=== PATIENT | female | born 1940 ===

== ENCOUNTER 2018-08-30 15:16 | Inpatient (IN) | payer MEDICARE ==
[2018-08-30 15:16] VITALS: BMI 23.6
[2018-08-30] MEDS ORDERED: Iohexol 240 (50 ml) PO ONE (16:09)
[2018-08-30] MEDS ORDERED: Sodium Chloride 0.9% 1,000 ML IV STA (16:10)
--- NOTE | 2018-08-30 16:32 | ED PDOC ---
HPI: Abdomen Time Seen by Provider: 08/30/18 15:57 Chief Complaint (Nursing): GI Problem Chief Complaint (Provider): GI Problem History Per: Patient, Family (Niece) History/Exam Limitations: no limitations Onset/Duration Of Symptoms: Other (3 weeks) Associated Symptoms: Chills, Diarrhea. denies: Fever, Nausea, Vomiting, Urinary Symptoms Additional Complaint(s): 78 years old female with history of hypertension and high cholesterol presents to ER with her niece for evaluation of abdominal pain and diarrhea. Patient reports diarrhea was initially intermittent since April, but has been frequent and watery in the last 3 weeks. Niece reports she felt patient is very pale and tired today and decided to bring her to the ED. Patient states she has occasional chills and reports feeling weak with 10 to 15 pounds of unintentional weight loss. She states she was seen by a atm servicer and was advised with endoscopy colonoscopy. Patient is trying to see if she can take capsule endoscopy colonoscopy instead of having the procedure. She denies any recent travel, sick contact, recent antibiotics uptake, nausea, vomiting, bloody stools, fever, urinary symptoms or change in appetite. PMD: Hallie Cook Past Medical History Reviewed: Historical Data, Nursing Documentation, Vital Signs Vital Signs: Last Vital Signs Temp 97.7 F 08/30/18 15:39 Pulse 84 08/30/18 15:39 Resp 18 08/30/18 15:39 BP 98/62 L 08/30/18 15:39 Pulse Ox 98 08/30/18 15:39 - Medical History PMH: Gall Bladder Disease, HTN, Hypercholesterolemia, Hypothyroidism, Chronic Kidney Disease (BLADDER LIFT) - Surgical History Surgical History: Cholecystectomy - Family History Family History: States: Unknown Family Hx - Social History Current smoker - smoking cessation education provided: No Alcohol: None Drugs: Denies - Immunization History Hx Tetanus Toxoid Vaccination: No Hx Influenza Vaccination: Yes Hx Pneumococcal Vaccination: Yes - Home Medications Home Medications: Ambulatory Orders Medication Instructions Recorded RX: Levothyroxine [Synthroid] 50 mcg PO DAILY 08/30/18 RX: Pregabalin [Lyrica] 75 mg PO BID 08/30/18 RX: Cholestyramine [Questran] 4 gm PO DAILY #14 packet 09/03/18 RX: Cyanocobalamin [Vitamin B12 1,000 mcg IM DAILY vial 09/03/18 1000 mcg/ml Inj] RX: Metoprolol Tartrate [Lopressor] 6.25 mg PO Q12 #60 tab 09/03/18 RX: Potassium Chloride [K-Dur 20 20 meq PO BID #4 tab 09/03/18 mEq ER Tab] - Allergies Allergies/Adverse Reactions: Allergies Allergy/AdvReac Type Severity Reaction Status Date / Time No Known Allergies Allergy Verified 02/17/16 20:55 Review of Systems ROS Statement: Except As Marked, All Systems Reviewed And Found Negative Constitutional: Positive for: Chills. Negative for: Fever Gastrointestinal: Positive for: Abdominal Pain, Diarrhea (watery). Negative for: Nausea, Vomiting Genitourinary Female: Negative for: Other (Bloody stools) Physical Exam - Reviewed Nursing Documentation Reviewed: Yes Vital Signs Reviewed: Yes - Physical Exam Appears: Positive for: Non-toxic (Tired appearing), No Acute Distress Head Exam: Positive for: ATRAUMATIC, NORMOCEPHALIC Skin: Positive for: Warm, Dry Eye Exam: Positive for: EOMI, PERRL ENT: Positive for: Pharynx Is (clear), Other (tacky mucous membranes) Neck: Positive for: Painless ROM, Supple Cardiovascular/Chest: Positive for: Regular Rate, Rhythm. Negative for: Murmur Respiratory: Positive for: Normal Breath Sounds. Negative for: Respiratory Di stress Gastrointestinal/Abdominal: Positive for: Bowel Sounds (normal, active), Soft, Tenderness (on palpation to LLQ). Negative for: Mass, Guarding, Rebound Back: Positive for: Normal Inspection. Negative for: Decreased ROM Extremity: Positive for: Normal ROM. Negative for: Deformity Lymphatic: Negative for: Adenopathy Neurologic/Psych: Positive for: Alert, Oriented (x3) - Laboratory Results Result Diagrams: 09/02/18 05:19 09/03/18 04:20 - ECG O2 Sat by Pulse Oximetry: 98 (RA) Pulse Ox Interpretation: Normal Medical Decision Making Medical Decision Making: Time: 1609 Initial Impression: Diarrhea and abdominal pain. Differential includes but not limited to diverticulitis, colitis, partial bowel obstruction, infectious diarrhea and dehydration. Initial Plan: --CT Abd/Pelvis W IV Contrast --CMP --Lactic acid --Lipase --Phosphorous --Magnesium --TSH --CBC --NaCl 1,000 ml IV --Omnipaque 50 ml PO --Blood culture --Urine culture --Stool culture --Urinalysis Time: 2046 Impression: 1. Moderate bowel wall thickening involving the small bowel, most consistent with enteritis. 2. Fluid distention of the colon, consistent with mild infectious of inflammatory colitis. No significant bowel thickening is appreciated. There is no evidence of bowel obstruction. 3. No evidence of hydronephrolithiais. 4. Slightly complex lesion in the lateral left kidney. Ultrasound would be helpful for further evaluation. 5. Periumbilical hernia containing only omental fat. 6. Grade 1 anterior spondylolisthesis of L5 upon S1 caused by bilateral pars defect. DW Dr [facility]. Pt to be hospitalized for hypokalemia, abdominal pain, dehydration. Scribe Attestation: Documented by Ora Dunabr, acting as a scribe for Ana Alexandra MD. Provider Scribe Attestation: All medical record entries made by the Scribe were at my direction and personally dictated by me. I have reviewed the chart and agree that the record accurately reflects my personal performance of the history, physical exam, medical decision making, and the department course for this patient. I have also personally directed, reviewed, and agree with the discharge instructions and disposition. Disposition - Clinical Impression Clinical Impression: Diarrhea, Hypokalemia, Gastroenteritis Counseled Patient/Family Regarding: Studies Performed, Diagnosis - Disposition Condition: FAIR
[2018-08-30] MEDS ORDERED: Iohexol 240 (50 ml) ONE (17:14)
[2018-08-30 17:32] LABS: BASO % 0.5 % (0.0-2.0); EOS # 0.6 K/uL (0.0-0.7); EOS % 10.1 % (0.0-4.0); HEMOGLOBIN 12.5 g/dL (12.0-16.0); LYMPH # 1.1 K/uL (1.0-4.3); MEAN CELL VOLUME 100.8 fl (81.0-99.0); MEAN CORPUSCULAR HEMOGLOBIN 33.7 pg (27.0-31.0); MEAN CORPUSCULAR HGB CONC 33.4 g/dL (33.0-37.0); MEAN PLATELET VOLUME 9.2 fl (7.2-11.7); MONO % 14.9 % (0.0-10.0); NEUT # 3.7 K/uL (1.8-7.0); NEUT % 57.5 % (50.0-75.0); RBC 3.73 Mil/uL (3.80-5.20); RED CELL DISTRIBUTION WIDTH 13.1 % (11.5-14.5); WHITE BLOOD COUNT 6.4 K/uL (4.8-10.8)
[2018-08-30 17:44] LABS: SQUAMOUS EPITHIAL < 1 /hpf (0-5); URINE BACTERIA RARE (<OCC); URINE BILIRUBIN SMALL (NEGATIVE); URINE BLOOD NEGATIVE (NEGATIVE); URINE CLARITY SLIGHTY-CLOUDY (Clear); URINE COLOR YELLOW (YELLOW); URINE GLUCOSE (UA) NEG (Normal); URINE HYALINE CAST 0-2 /hpf (0-2); URINE LEUKOCYTE ESTERASE MOD Leu/uL (Negative); URINE PROTEIN 30 mg/dL (NEGATIVE); URINE UROBILINOGEN 0.2-1.0 mg/dL (0.2-1.0)
[2018-08-30 19:30] LABS: ALBUMIN 4.2 g/dL (3.5-5.0); CALCIUM 9.1 mg/dL (8.4-10.2)
[2018-08-30] MEDS ORDERED: Potassium CL 10mEq/100ml 100 ML IVPB ONE (19:34)
[2018-08-30] MEDS ORDERED: Potassium Chloride 20 mEq ER Tab PO STA (19:34)
[2018-08-30] MEDS ORDERED: Potassium Chloride 20 mEq ER Tab PO ONE ×2 (20:29→20:35)
[2018-08-30] MEDS ORDERED: Potassium CL 10 MEQ/50 ML 0 ML ONE (20:30)
[2018-08-30] MEDS ORDERED: metroNIDAZOLE 500mg/100ml NS 100 ML IV STA (21:16)
[2018-08-30] MEDS ORDERED: Ciprofloxacin 400mg/200ml D5W 400 MG/200 ML BAG IV STA (21:16)
[2018-08-30] MEDS ORDERED: metroNIDAZOLE 500mg/100ml NS 100 ML IVPB ONE (23:23)
--- NOTE | 2018-08-31 06:56 | CARD ---
APPROVED REPORT Date of service: 08/31/2018 EKG Measurement Heart [id number] <Conclusion> Normal sinus rhythm with sinus arrhythmia Inferior infarct, age undetermined Abnormal ECG
[2018-08-31] MEDS: Levothyroxine 50 MCG TAB PO SCH (08:22)
[2018-08-31] MEDS: Dextrose 5%/0.45% NS 1,000 ML IV SCH ×2 (08:22→21:45)
[2018-08-31] MEDS: Enoxaparin 30 mg Syringe SC SCH (08:23)
--- NOTE | 2018-08-31 08:59 | CP.PCM.HP ---
History of Present Illness - History of Present Illness History of Present Illness: 78 YR OLD FEMALE WHO PRESENTED WITH ABDOMINAL PAINS AND WATERY DIARRHEA X SEVERAL MONTHS.SYMPTOMS HAVE WORSENED OVER THE PAST SEVERAL DAYS.DENIES BLOODY STOOLS BUT HAD NAUSEA AND VOMITING.WAS REFERRED TO A SURVEY SUPERINTENDENT BUT HAS BEEN RELUCTANT TO HAVE EGD/COLONOSCOPY HX OF THYROID DZ AND HTN Present on Admission - Present on Admission Any Indicators Present on Admission: No Past Patient History - Past Medical History & Family History Past Medical History?: Yes - Past Social History Smoking Status: Never Smoked - CARDIAC Hx Cardiac Disorders: Yes - PULMONARY Hx Respiratory Disorders: No - NEUROLOGICAL Hx Neurological Disorder: No - HEENT Hx HEENT Problems: No - RENAL Hx Chronic Kidney Disease: Yes (BLADDER LIFT) - ENDOCRINE/METABOLIC Hx Endocrine Disorders: Yes - HEMATOLOGICAL/ONCOLOGICAL Hx Blood Disorders: No - INTEGUMENTARY Hx Dermatological Problems: No - MUSCULOSKELETAL/RHEUMATOLOGICAL Hx Musculoskeletal Disorders: Yes Hx Falls: Yes - GASTROINTESTINAL Hx Gall Bladder Disease: Yes - GENITOURINARY/GYNECOLOGICAL Hx Genitourinary Disorders: No - PSYCHIATRIC Hx Psychophysiologic Disorder: No Hx Substance Use: No - SURGICAL HISTORY Hx Cholecystectomy: Yes - ANESTHESIA Hx Anesthesia: Yes Hx Anesthesia Reactions: No Hx Malignant Hyperthermia: No Meds Allergies/Adverse Reactions: Allergies Allergy/AdvReac Type Severity Reaction Status Date / Time No Known Allergies Allergy Verified 02/17/16 20:55 Physical Exam - Constitutional Appears: No Acute Distress - Head Exam Head Exam: ATRAUMATIC, NORMAL INSPECTION, NORMOCEPHALIC - Eye Exam Eye Exam: EOMI, Normal appearance, PERRL Pupil Exam: NORMAL ACCOMODATION, PERRL - ENT Exam ENT Exam: Mucous Membranes Moist, Normal Exam - Neck Exam Neck exam: Positive for: Normal Inspection - Respiratory Exam Respiratory Exam: Clear to Auscultation Bilateral, NORMAL BREATHING PATTERN - Cardiovascular Exam Cardiovascular Exam: REGULAR RHYTHM - GI/Abdominal Exam GI & Abdominal Exam: Normal Bowel Sounds, Soft, Tenderness - Rectal Exam Rectal Exam: NORMAL INSPECTION - Extremities Exam Extremities exam: Positive for: normal inspection - Back Exam Back exam: NORMAL INSPECTION - Neurological Exam Neurological exam: Alert, CN II-XII Intact, Normal Gait, Oriented x3, Reflexes Normal - Psychiatric Exam Psychiatric exam: Normal Affect, Normal Mood - Skin Skin Exam: Dry, Intact, Normal Color, Warm Results - Vital Signs Recent Vital Signs: Last Vital Signs Temp 98.2 F 08/31/18 08:26 Pulse 71 08/31/18 08:26 Resp 20 08/31/18 08:26 BP 101/58 L 08/31/18 08:26 Pulse Ox 98 08/31/18 08:26 - Labs Result Diagrams: 08/30/18 16:13 08/30/18 19:07 Labs: Laboratory Results - last 24 hr 08/30/18 08/30/18 08/30/18 16:13 16:58 17:25 WBC 6.4 RBC 3.73 L Hgb 12.5 Hct 37.6 MCV 100.8 H MCH 33.7 H MCHC 33.4 RDW 13.1 Plt Count 174 MPV 9.2 Neut % (Auto) 57.5 Lymph % (Auto) 17.0 L [place] % (Auto) 14.9 H Eos % (Auto) 10.1 H Baso % (Auto) 0.5 Neut # (Auto) 3.7 Lymph # (Auto) 1.1 [place] # (Auto) 1.0 H Eos # (Auto) 0.6 Baso # (Auto) 0.0 Sodium Potassium Chloride Carbon Dioxide Anion Gap BUN Creatinine Est GFR ( Amer) Est GFR (Non-Af Amer) Random Glucose Lactic Acid 1.4 Calcium Phosphorus Magnesium Total Bilirubin AST ALT Alkaline Phosphatase Total Protein Albumin Globulin Albumin/Globulin Ratio Lipase TSH 3rd Generation Urine Color Yellow Urine Clarity Slighty-cloudy Urine pH 5.0 Ur Specific [place] 1.021 Urine Protein 30 Urine Glucose (UA) Neg Urine Ketones Negative Urine Blood Negative Urine Nitrate Negative Urine Bilirubin Small Urine Urobilinogen 0.2-1.0 Ur Leukocyte Esterase Mod Urine RBC (Auto) 3 Urine Microscopic WBC 48 H Ur Squamous Epith Cells < 1 Urine Bacteria Rare Hyaline Casts 0-2 08/30/18 19:07 WBC RBC Hgb Hct MCV MCH MCHC RDW Plt Count MPV Neut % (Auto) Lymph % (Auto) [place] % (Auto) Eos % (Auto) Baso % (Auto) Neut # (Auto) Lymph # (Auto) [place] # (Auto) Eos # (Auto) Baso # (Auto) Sodium 140 Potassium 2.6 L Chloride 100 Carbon Dioxide 20 L Anion Gap 23 H BUN 52 H Creatinine 2.4 H Est GFR ( Amer) 24 Est GFR (Non-Af Amer) 20 Random Glucose 103 Lactic Acid Calcium 9.1 Phosphorus 4.0 Magnesium 2.1 Total Bilirubin 0.5 AST 34 ALT 18 Alkaline Phosphatase 71 Total Protein 8.3 H Albumin 4.2 Globulin 4.1 H Albumin/Globulin Ratio 1.0 Lipase 372 H TSH 3rd Generation 1.29 Urine Color Urine Clarity Urine pH Ur Specific [place] Urine Protein Urine Glucose (UA) Urine Ketones Urine Blood Urine Nitrate Urine Bilirubin Urine Urobilinogen Ur Leukocyte Esterase Urine RBC (Auto) Urine Microscopic WBC Ur Squamous Epith Cells Urine Bacteria Hyaline Casts Assessment & Plan - Assessment and Plan (Free Text) Assessment: ACUTE COLITIS DEHYDRATION HYPOKALEMIA DUE TO GI LOSS Plan: IV HYDRATION AND ANTIBIOTICS GASTROENTEROLOGY EVAL - Date & Time Date: 08/31/18 Time: 09:00
[2018-08-31 09:13] LABS: HEMOGLOBIN 11.8 g/dL (12.0-16.0); MEAN CELL VOLUME 98.7 fl (81.0-99.0); MEAN CORPUSCULAR HEMOGLOBIN 34.3 pg (27.0-31.0); MEAN CORPUSCULAR HGB CONC 34.7 g/dL (33.0-37.0); RBC 3.45 Mil/uL (3.80-5.20); RED CELL DISTRIBUTION WIDTH 13.1 % (11.5-14.5); WHITE BLOOD COUNT 5.7 K/uL (4.8-10.8)
[2018-08-31 09:43] LABS: CALCIUM 8.6 mg/dL (8.4-10.2)
[2018-08-31] MEDS: Potassium CL 10mEq/100ml 100 ML IVPB SCH ×3 (11:14→14:38)
[2018-08-31] MEDS: metroNIDAZOLE 500mg/100ml NS 100 ML IVPB SCH ×2 (11:15→16:30)
[2018-08-31] MEDS: Ciprofloxacin 400mg/200ml D5W 400 MG/200 ML BAG IVPB SCH ×2 (11:15→21:41)
--- NOTE | 2018-08-31 11:26 | CT ---
Date of service: 08/30/2018 PROCEDURE: CT Abdomen and Pelvis with contrast HISTORY: Abdominal pain. COMPARISON: None. TECHNIQUE: Intravenous contrast dose: Oral contrast only. Radiation dose: Total exam DLP = 347.85 mGy-cm. This CT exam was performed using one or more of the following dose reduction techniques: Automated exposure control, adjustment of the mA and/or kV according to patient size, and/or use of iterative reconstruction technique. FINDINGS: LOWER THORAX: Unremarkable. LIVER: Unremarkable. No gross lesion or ductal dilatation. GALLBLADDER AND BILE DUCTS: Status post cholecystectomy. No abnormality is seen in the gallbladder fossa. PANCREAS: Unremarkable. No gross lesion or ductal dilatation. SPLEEN: Unremarkable. ADRENALS: Unremarkable. No mass. KIDNEYS AND URETERS: Unremarkable. No hydronephrosis. No solid mass. VASCULATURE: Unremarkable. No aortic aneurysm. BOWEL: Fluid-filled colon and small bowel findings likely reflect enterocolitis. APPENDIX: No abnormalities to suggest acute appendicitis. No right lower quadrant inflammatory processes identified. PERITONEUM: Unremarkable. No free fluid. No free air. LYMPH NODES: Lymph nodes scattered throughout the rest Betzy and retroperitoneum consistent with mesenteric adenitis. BLADDER: Unremarkable. REPRODUCTIVE: Unremarkable. BONES: No acute fracture. Grade 1 anterolisthesis L5-S1 with associated pars defects. Loss of height L2 and T9 compatible with osteopenic compression deformities. OTHER FINDINGS: Periumbilical fat containing hernia. IMPRESSION: Enterocolitis, mild without evidence of obstructing process
--- NOTE | 2018-08-31 14:50 | CP.PCM.CON ---
History of Present Illness - History of Present Illness History of Present Illness: GI consult note for Dr. Fouzia Cooper, PGY-2 Pt S & E at bedside at 1415. Pt somnolent at bedside, history as per great niece at bedside. [place] speaking. 78F w/PMH sig for Asthma, hx TIAs, peripheral neuropathy, hypothyroidism, HTN consulted for colitis. Fermin corado moved in with patient in April, noticed that patient was having recurrent diarrhea over the past few months. Pt was evaluated by Dr. Purcell with recs for EGD/colonoscopy, which patient refused. Pt requested capsule endoscopy, was referred to Dr. Vo- initial visit scheduled for 09/20. In the last 2 weeks patient has been having increased episodes of diarrhea, generalized weakness, unsteady gait, mild diffuse intermittent abdominal pain. Occasionally has SOB. Eats at other peoples houses Denies N & V, CP, changes in urinary habits, hematochezia, melena, F & C, recent travel, other complaints. Upon admission- pt found to have severe hypokalemia, K 2.7 from 2.6. 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 Purcell and Dr. Vo (future appointment) Review of Systems - Review of Systems All systems: reviewed and no additional remarkable complaints except - Constitutional Constitutional: absent: Chills, Fever, Headache - EENT Ears: absent: Dizziness Nose/Mouth/Throat: absent: Sore Throat - Cardiovascular Cardiovascular: absent: Chest Pain - Respiratory Respiratory: absent: Cough - Gastrointestinal Gastrointestinal: Abdominal Pain (mild), Change in Bowel Habits, Diarrhea, Loose Stools. absent: Constipation, Hematemesis, Hematochezia, Melena, Nausea, Vomiting - Genitourinary Genitourinary: absent: Change in Urinary Stream, Dysuria, Hematuria, Pyuria - Musculoskeletal Musculoskeletal: absent: Back Pain - Integumentary Integumentary: absent: Rash - Neurological Neurological: Abnormal Gait - Psychiatric Psychiatric: absent: Change in Appetite Past Patient History - Past Medical History & Family History Past Medical History?: Yes - Past Social History Smoking Status: Never Smoked - CARDIAC Hx Cardiac Disorders: Yes - PULMONARY Hx Respiratory Disorders: No - NEUROLOGICAL Hx Neurological Disorder: No - HEENT Hx HEENT Problems: No - RENAL Hx Chronic Kidney Disease: Yes (BLADDER LIFT) - ENDOCRINE/METABOLIC Hx Endocrine Disorders: Yes - HEMATOLOGICAL/ONCOLOGICAL Hx Blood Disorders: No - INTEGUMENTARY Hx Dermatological Problems: No - MUSCULOSKELETAL/RHEUMATOLOGICAL Hx Musculoskeletal Disorders: Yes Hx Falls: Yes - GASTROINTESTINAL Hx Gall Bladder Disease: Yes - GENITOURINARY/GYNECOLOGICAL Hx Genitourinary Disorders: No - PSYCHIATRIC Hx Psychophysiologic Disorder: No Hx Substance Use: No - SURGICAL HISTORY Hx Cholecystectomy: Yes - ANESTHESIA Hx Anesthesia: Yes Hx Anesthesia Reactions: No Hx Malignant Hyperthermia: No Meds Allergies/Adverse Reactions: Allergies Allergy/AdvReac Type Severity Reaction Status Date / Time No Known Allergies Allergy Verified 02/17/16 20:55 - Medications Medications: Current Medications Cholestyramine Resin (Questran) 4 gm PO DAILY [facility] Enoxaparin Sodium (Lovenox) 30 mg SC DAILY [facility]; Protocol Last Admin: 08/31/18 08:23 Dose: 30 mg Ciprofloxacin (Cipro 400mg/200ml Dsw) 400 mg in 200 mls @ 200 mls/hr IVPB Q12 [facility]; Protocol Last Admin: 08/31/18 11:15 Dose: 200 mls/hr Metronidazole (Flagyl 500mg/100ml Ns) 100 mls @ 100 mls/hr IVPB Q8 [facility]; Protocol Last Admin: 08/31/18 11:15 Dose: 100 mls/hr Dextrose/Sodium Chloride (Dextrose 5%/0.45% Ns 1000 Ml) 1,000 mls @ 80 mls/hr IV .[id number] [facility] Stop: 09/01/18 06:46 Last Admin: 08/31/18 08:22 Dose: 80 mls/hr Levothyroxine Sodium (Synthroid) 50 mcg PO DAILY@0630 [facility] Last Admin: 08/31/18 08:22 Dose: 50 mcg Metoprolol Tartrate (Lopressor) 6.25 mg PO Q12 [facility] Last Admin: 08/31/18 12:45 Dose: 6.25 mg Pantoprazole Sodium (Protonix Inj) 40 mg IVP DAILY [facility] Last Admin: 08/31/18 11:16 Dose: 40 mg Physical Exam - Constitutional Appears: Non-toxic, No Acute Distress - Head Exam Head Exam: ATRAUMATIC, NORMAL INSPECTION, NORMOCEPHALIC - Eye Exam Eye Exam: EOMI, Normal appearance - ENT Exam ENT Exam: Mucous Membranes Moist, Normal Exam - Neck Exam Neck exam: Positive for: Full Rom, Normal Inspection - Respiratory Exam Respiratory Exam: Clear to Auscultation Bilateral, NORMAL BREATHING PATTERN. absent: Prolonged Expiratory Phase, Rales, Rhonchi, Wheezes, Respiratory Distress - Cardiovascular Exam Cardiovascular Exam: +S1, +S2 - GI/Abdominal Exam GI & Abdominal Exam: Hernia (umbilical), Normal Bowel Sounds, Soft. absent: Dis tended, Firm, Guarding, Mass, Rebound, Rigid, Tenderness - Rectal Exam Rectal Exam: Deferred - Extremities Exam Extremities exam: Positive for: normal inspection - Neurological Exam Additional comments: somnolent, arousable to verbal and tactile stimuli - Psychiatric Exam Psychiatric exam: Normal Affect, Normal Mood - Skin Skin Exam: Dry, Intact, Normal Color, Warm Results - Vital Signs Recent Vital Signs: Last Vital Signs Temp 98.5 F 08/31/18 12:38 Pulse 71 08/31/18 12:45 Resp 20 08/31/18 12:38 BP 120/70 08/31/18 12:45 Pulse Ox 96 08/31/18 12:38 - Labs Result Diagrams: 08/31/18 09:05 08/31/18 09:05 Labs: Laboratory Results - last 24 hr 08/30/18 08/30/18 08/30/18 16:13 16:58 17:25 WBC 6.4 RBC 3.73 L Hgb 12.5 Hct 37.6 MCV 100.8 H MCH 33.7 H MCHC 33.4 RDW 13.1 Plt Count 174 MPV 9.2 Neut % (Auto) 57.5 Lymph % (Auto) 17.0 L [place] % (Auto) 14.9 H Eos % (Auto) 10.1 H Baso % (Auto) 0.5 Neut # (Auto) 3.7 Lymph # (Auto) 1.1 [place] # (Auto) 1.0 H Eos # (Auto) 0.6 Baso # (Auto) 0.0 Sodium Potassium Chloride Carbon Dioxide Anion Gap BUN Creatinine Est GFR ( Amer) Est GFR (Non-Af Amer) Random Glucose Lactic Acid 1.4 Calcium Phosphorus Magnesium Total Bilirubin AST ALT Alkaline Phosphatase Total Protein Albumin Globulin Albumin/Globulin Ratio Lipase TSH 3rd Generation Urine Color Yellow Urine Clarity Slighty-cloudy Urine pH 5.0 Ur Specific [place] 1.021 Urine Protein 30 Urine Glucose (UA) Neg Urine Ketones Negative Urine Blood Negative Urine Nitrate Negative Urine Bilirubin Small Urine Urobilinogen 0.2-1.0 Ur Leukocyte Esterase Mod Urine RBC (Auto) 3 Urine Microscopic WBC 48 H Ur Squamous Epith Cells < 1 Urine Bacteria Rare Hyaline Casts 0-2 08/30/18 08/31/18 08/31/18 19:07 09:05 09:05 WBC 5.7 RBC 3.45 L Hgb 11.8 L Hct 34.1 MCV 98.7 D MCH 34.3 H MCHC 34.7 RDW 13.1 Plt Count 164 MPV Neut % (Auto) Lymph % (Auto) [place] % (Auto) Eos % (Auto) Baso % (Auto) Neut # (Auto) Lymph # (Auto) [place] # (Auto) Eos # (Auto) Baso # (Auto) Sodium 140 139 Potassium 2.6 L 2.7 L Chloride 100 103 Carbon Dioxide 20 L 26 Anion Gap 23 H 13 BUN 52 H 32 H Creatinine 2.4 H 1.5 H Est GFR ( Amer) 24 41 Est GFR (Non-Af Amer) 20 34 Random Glucose 103 92 Lactic Acid Calcium 9.1 8.6 Phosphorus 4.0 Magnesium 2.1 Total Bilirubin 0.5 AST 34 ALT 18 Alkaline Phosphatase 71 Total Protein 8.3 H Albumin 4.2 Globulin 4.1 H Albumin/Globulin Ratio 1.0 Lipase 372 H TSH 3rd Generation 1.29 Urine Color Urine Clarity Urine pH Ur Specific [place] Urine Protein Urine Glucose (UA) Urine Ketones Urine Blood Urine Nitrate Urine Bilirubin Urine Urobilinogen Ur Leukocyte Esterase Urine RBC (Auto) Urine Microscopic WBC Ur Squamous Epith Cells Urine Bacteria Hyaline Casts Assessment & Plan - Assessment and Plan (Free Text) Assessment: 78F w/colitis, severe hypokalemia Plan: Recommend EGD/colonoscopy- pt currrently refusing intervention Cholestyramine Stool studies B12/Folate Iron Fecal fat Fecal Calprotectin Fecal electrolytes FOB Work up for autoimmune vs. infectious etiology Further mgmt as per primary DW Dr. Valorie Cooper, PGY-2 - Date & Time Date: 08/31/18 Time: 14:49
[2018-08-31] MEDS: Cholestyramine 4 gm/Pkt UD PO SCH (17:50)
[2018-09-01] MEDS: metroNIDAZOLE 500mg/100ml NS 100 ML IVPB SCH ×3 (01:05→16:00)
[2018-09-01] MEDS: Levothyroxine 50 MCG TAB PO SCH (06:04)
[2018-09-01 06:05] LABS: CALCIUM 8.3 mg/dL (8.4-10.2)
[2018-09-01] MEDS: Cholestyramine 4 gm/Pkt UD PO SCH (08:17)
[2018-09-01] MEDS: Ciprofloxacin 400mg/200ml D5W 400 MG/200 ML BAG IVPB SCH ×2 (08:17→21:33)
[2018-09-01] MEDS: Enoxaparin 30 mg Syringe SC SCH (08:17)
--- NOTE | 2018-09-01 10:13 | CP.PCM.PN ---
Subjective - Date & Time of Evaluation Date of Evaluation: 09/01/18 Time of Evaluation: 10:13 - Subjective Subjective: SCARED TO EAT BECAUSE OF DIARRHEA DIARRHEA IS LESS DENIES ABDOMINAL PAIN/NAUSEA/VOMITING Objective - Vital Signs/Intake and Output Vital Signs (last 24 hours): Temp Pulse Resp BP Pulse Ox 98.0 F 62 18 122/65 97 09/01/18 09:26 09/01/18 09:26 09/01/18 09:26 09/01/18 09:26 09/01/18 09:26 - Medications Medications: Current Medications Cholestyramine Resin (Questran) 4 gm PO DAILY [facility] Last Admin: 09/01/18 08:17 Dose: 4 gm Cyanocobalamin (Vitamin B12 1000 Mcg/Ml Inj) 1,000 mcg IM DAILY [facility] Enoxaparin Sodium (Lovenox) 30 mg SC DAILY [facility]; Protocol Last Admin: 09/01/18 08:17 Dose: 30 mg Ciprofloxacin (Cipro 400mg/200ml Dsw) 400 mg in 200 mls @ 200 mls/hr IVPB Q12 [facility]; Protocol Last Admin: 09/01/18 08:17 Dose: 200 mls/hr Metronidazole (Flagyl 500mg/100ml Ns) 100 mls @ 100 mls/hr IVPB Q8 [facility]; Protocol Last Admin: 09/01/18 08:16 Dose: 100 mls/hr Potassium Chloride (Potassium Cl 10meq/50ml Sterile Water) 50 mls @ 50 mls/hr IVPB Q1 [facility] Stop: 09/01/18 12:59 Levothyroxine Sodium (Synthroid) 50 mcg PO DAILY@0630 [facility] Last Admin: 09/01/18 06:04 Dose: 50 mcg Metoprolol Tartrate (Lopressor) 6.25 mg PO Q12 [facility] Last Admin: 09/01/18 08:45 Dose: 6.25 mg Pantoprazole Sodium (Protonix Inj) 40 mg IVP DAILY [facility] Last Admin: 09/01/18 08:17 Dose: 40 mg Potassium Chloride (K-Dur 20 Meq Er Tab) 20 meq PO BID [facility] - Labs Labs: 08/31/18 09:05 09/01/18 05:16 - Constitutional Appears: Chronically Ill - Head Exam Head Exam: ATRAUMATIC, NORMAL INSPECTION, NORMOCEPHALIC - Eye Exam Eye Exam: EOMI, Normal appearance, PERRL Pupil Exam: NORMAL ACCOMODATION, PERRL - ENT Exam ENT Exam: Mucous Membranes Moist, Normal Exam - Neck Exam Neck Exam: Full ROM, Normal Inspection. absent: Lymphadenopathy - Respiratory Exam Respiratory Exam: Clear to Ausculation Bilateral, NORMAL BREATHING PATTERN - Cardiovascular Exam Cardiovascular Exam: REGULAR RHYTHM, +S1, +S2. absent: Murmur - GI/Abdominal Exam GI & Abdominal Exam: Soft, Normal Bowel Sounds. absent: Tenderness - Rectal Exam Rectal Exam: NORMAL INSPECTION - Extremities Exam Extremities Exam: Full ROM, Normal Capillary Refill, Normal Inspection. absent: Joint Swelling, Pedal Edema - Back Exam Back Exam: NORMAL INSPECTION - Neurological Exam Neurological Exam: Alert, Awake, CN II-XII Intact, Normal Gait, Oriented x3 - Psychiatric Exam Psychiatric exam: Normal Affect, Normal Mood - Skin Skin Exam: Dry, Intact, Normal Color, Warm Assessment and Plan - Assessment and Plan (Free Text) Assessment: ACUTE COLITIS--R/O INFECTIOUS/INFLAMATORY SEVERE HYPOKALEMIA Plan: PT AGREES TO HAVE EGD AND COLONOSCOPY WILL REPLACE K+
[2018-09-01] MEDS: Potassium Chloride 20 mEq ER Tab PO SCH ×2 (11:45→16:02)
[2018-09-01] MEDS: Potassium CL 10 MEQ/50 ML 50 ML IVPB SCH ×4 (11:48→15:18)
--- NOTE | 2018-09-01 16:01 | CP.PCM.PN ---
Subjective - Date & Time of Evaluation Date of Evaluation: 09/01/18 Time of Evaluation: 09:00 - Subjective Subjective: Patient with fewer bowel movements over night. Over the course of today has had loose liquid yellow stools. Objective - Vital Signs/Intake and Output Vital Signs (last 24 hours): Temp Pulse Resp BP Pulse Ox 98.0 F 66 20 125/75 98 09/01/18 13:00 09/01/18 13:00 09/01/18 13:00 09/01/18 13:00 09/01/18 13:00 - Medications Medications: Current Medications Cholestyramine Resin (Questran) 4 gm PO DAILY [facility] Last Admin: 09/01/18 08:17 Dose: 4 gm Cyanocobalamin (Vitamin B12 1000 Mcg/Ml Inj) 1,000 mcg IM DAILY [facility] Last Admin: 09/01/18 11:45 Dose: 1,000 mcg Enoxaparin Sodium (Lovenox) 30 mg SC DAILY [facility]; Protocol Last Admin: 09/01/18 08:17 Dose: 30 mg Ciprofloxacin (Cipro 400mg/200ml Dsw) 400 mg in 200 mls @ 200 mls/hr IVPB Q12 [facility]; Protocol Last Admin: 09/01/18 08:17 Dose: 200 mls/hr Metronidazole (Flagyl 500mg/100ml Ns) 100 mls @ 100 mls/hr IVPB Q8 [facility]; Protocol Last Admin: 09/01/18 08:16 Dose: 100 mls/hr Levothyroxine Sodium (Synthroid) 50 mcg PO DAILY@0630 [facility] Last Admin: 09/01/18 06:04 Dose: 50 mcg Metoprolol Tartrate (Lopressor) 6.25 mg PO Q12 [facility] Last Admin: 09/01/18 08:45 Dose: 6.25 mg Pantoprazole Sodium (Protonix Inj) 40 mg IVP DAILY [facility] Last Admin: 09/01/18 08:17 Dose: 40 mg Potassium Chloride (K-Dur 20 Meq Er Tab) 20 meq PO BID [facility] Last Admin: 09/01/18 11:45 Dose: 20 meq - Labs Labs: 08/31/18 09:05 09/01/18 05:16 - Head Exam Head Exam: ATRAUMATIC - Eye Exam Eye Exam: Normal appearance - Neck Exam Neck Exam: Full ROM - Respiratory Exam Respiratory Exam: Clear to Ausculation Bilateral - Cardiovascular Exam Cardiovascular Exam: REGULAR RHYTHM - GI/Abdominal Exam GI & Abdominal Exam: Soft, Tenderness, Normal Bowel Sounds Additional comments: mild generalized tenderness Assessment and Plan (1) Diarrhea Assessment & Plan: Has persistent diarrhea. Somewhat better last night but nursing reporting liquid yellow stools today. CT showed moderate mucosal thickening of small bowel and fluid filled colon loops. Potassium still low. B12 also low. B12 and K+ being supplemented. If patient and family agree will do upper and lower endoscopy tomorrow. Differential includes IBD, infection, microscopic colitis, and celiac disease. Status: Acute
--- NOTE | 2018-09-01 16:38 | CP.PCM.PN ---
Subjective - Date & Time of Evaluation Date of Evaluation: 09/01/18 Time of Evaluation: 16:29 - Subjective Subjective: Discussed upper and lower endoscopy with patient's niece and she states that the patient and her family do not want any endoscopic procedures at this time. Objective - Vital Signs/Intake and Output Vital Signs (last 24 hours): Temp Pulse Resp BP Pulse Ox 98.5 F 73 20 115/73 98 09/01/18 16:21 09/01/18 16:21 09/01/18 16:21 09/01/18 16:21 09/01/18 16:21 - Medications Medications: Current Medications Cholestyramine Resin (Questran) 4 gm PO DAILY [facility] Last Admin: 09/01/18 08:17 Dose: 4 gm Cyanocobalamin (Vitamin B12 1000 Mcg/Ml Inj) 1,000 mcg IM DAILY [facility] Last Admin: 09/01/18 11:45 Dose: 1,000 mcg Enoxaparin Sodium (Lovenox) 30 mg SC DAILY [facility]; Protocol Last Admin: 09/01/18 08:17 Dose: 30 mg Ciprofloxacin (Cipro 400mg/200ml Dsw) 400 mg in 200 mls @ 200 mls/hr IVPB Q12 [facility]; Protocol Last Admin: 09/01/18 08:17 Dose: 200 mls/hr Metronidazole (Flagyl 500mg/100ml Ns) 100 mls @ 100 mls/hr IVPB Q8 [facility]; Protocol Last Admin: 09/01/18 16:00 Dose: 100 mls/hr Levothyroxine Sodium (Synthroid) 50 mcg PO DAILY@0630 [facility] Last Admin: 09/01/18 06:04 Dose: 50 mcg Metoprolol Tartrate (Lopressor) 6.25 mg PO Q12 [facility] Last Admin: 09/01/18 08:45 Dose: 6.25 mg Pantoprazole Sodium (Protonix Inj) 40 mg IVP DAILY [facility] Last Admin: 09/01/18 08:17 Dose: 40 mg Potassium Chloride (K-Dur 20 Meq Er Tab) 20 meq PO BID [facility] Last Admin: 09/01/18 16:02 Dose: 20 meq - Labs Labs: 08/31/18 09:05 09/01/18 05:16 Assessment and Plan (1) Diarrhea Assessment & Plan: Continue current treatment. Upper and lower endoscopy cancelled as per the pa tient and family wishes. Status: Acute
[2018-09-01 17:44] LABS: FOLATE 14.3 ng/mL
[2018-09-02] MEDS: metroNIDAZOLE 500mg/100ml NS 100 ML IVPB SCH ×3 (00:52→17:54)
[2018-09-02 05:34] LABS: BASO % 0.8 % (0.0-2.0); EOS # 0.8 K/uL (0.0-0.7); EOS % 12.3 % (0.0-4.0); HEMOGLOBIN 11.2 g/dL (12.0-16.0); LYMPH # 1.3 K/uL (1.0-4.3); LYMPH % 21.7 % (20.0-40.0); MEAN CELL VOLUME 99.8 fl (81.0-99.0); MEAN CORPUSCULAR HEMOGLOBIN 34.3 pg (27.0-31.0); MEAN CORPUSCULAR HGB CONC 34.4 g/dL (33.0-37.0); MEAN PLATELET VOLUME 8.7 fl (7.2-11.7); MONO # 0.8 K/uL (0.0-0.8); MONO % 12.8 % (0.0-10.0); NEUT # 3.2 K/uL (1.8-7.0); NEUT % 52.4 % (50.0-75.0); NRBC % 0.1 % (0.0-0.0); RBC 3.27 Mil/uL (3.80-5.20); RED CELL DISTRIBUTION WIDTH 12.9 % (11.5-14.5); WHITE BLOOD COUNT 6.2 K/uL (4.8-10.8)
[2018-09-02 05:51] LABS: CALCIUM 8.5 mg/dL (8.4-10.2)
[2018-09-02] MEDS: Levothyroxine 50 MCG TAB PO SCH (06:01)
--- NOTE | 2018-09-02 08:57 | CP.PCM.PN ---
Subjective - Date & Time of Evaluation Date of Evaluation: 09/02/18 Time of Evaluation: 08:57 - Subjective Subjective: FEELS BETTER REFUSING COLONOSCOPY DIARRHEA LESS Objective - Vital Signs/Intake and Output Vital Signs (last 24 hours): Temp Pulse Resp BP Pulse Ox 98.3 F 73 18 117/72 97 09/02/18 07:56 09/02/18 07:56 09/02/18 07:56 09/02/18 07:56 09/02/18 07:56 - Medications Medications: Current Medications Cholestyramine Resin (Questran) 4 gm PO DAILY [facility] Last Admin: 09/01/18 08:17 Dose: 4 gm Cyanocobalamin (Vitamin B12 1000 Mcg/Ml Inj) 1,000 mcg IM DAILY [facility] Last Admin: 09/01/18 11:45 Dose: 1,000 mcg Enoxaparin Sodium (Lovenox) 30 mg SC DAILY [facility]; Protocol Last Admin: 09/01/18 08:17 Dose: 30 mg Ciprofloxacin (Cipro 400mg/200ml Dsw) 400 mg in 200 mls @ 200 mls/hr IVPB Q12 [facility]; Protocol Last Admin: 09/01/18 21:33 Dose: 200 mls/hr Metronidazole (Flagyl 500mg/100ml Ns) 100 mls @ 100 mls/hr IVPB Q8 [facility]; Protocol Last Admin: 09/02/18 00:52 Dose: 100 mls/hr Levothyroxine Sodium (Synthroid) 50 mcg PO DAILY@0630 [facility] Last Admin: 09/02/18 06:01 Dose: 50 mcg Metoprolol Tartrate (Lopressor) 6.25 mg PO Q12 [facility] Last Admin: 09/01/18 22:07 Dose: 6.25 mg Pantoprazole Sodium (Protonix Inj) 40 mg IVP DAILY [facility] Last Admin: 09/01/18 08:17 Dose: 40 mg Potassium Chloride (K-Dur 20 Meq Er Tab) 20 meq PO BID [facility] Last Admin: 09/01/18 16:02 Dose: 20 meq - Labs Labs: 09/02/18 05:19 09/02/18 05:19 - Constitutional Appears: No Acute Distress - Head Exam Head Exam: ATRAUMATIC, NORMAL INSPECTION, NORMOCEPHALIC - Eye Exam Eye Exam: EOMI, Normal appearance, PERRL Pupil Exam: NORMAL ACCOMODATION, PERRL - ENT Exam ENT Exam: Mucous Membranes Moist, Normal Exam - Neck Exam Neck Exam: Full ROM, Normal Inspection. absent: Lymphadenopathy - Respiratory Exam Respiratory Exam: Clear to Ausculation Bilateral, NORMAL BREATHING PATTERN - Cardiovascular Exam Cardiovascular Exam: REGULAR RHYTHM, +S1, +S2. absent: Murmur - GI/Abdominal Exam GI & Abdominal Exam: Soft, Normal Bowel Sounds. absent: Tenderness - Rectal Exam Rectal Exam: NORMAL INSPECTION - Extremities Exam Extremities Exam: Full ROM, Normal Capillary Refill, Normal Inspection. absent: Joint Swelling, Pedal Edema - Back Exam Back Exam: NORMAL INSPECTION - Neurological Exam Neurological Exam: Alert, Awake, CN II-XII Intact, Normal Gait, Oriented x3 - Psychiatric Exam Psychiatric exam: Normal Affect, Normal Mood - Skin Skin Exam: Dry, Intact, Normal Color, Warm Assessment and Plan - Assessment and Plan (Free Text) Assessment: COLITIS HYPOKALEMIA DEHYDRATION Plan: CONTINUE ANTIBIOTIC RX K+SUPPLEMENTS WILL D/C IN AM IF PT CONTINUES TO REFUSE COLONOSCOPY[SHE WILL FOLLOW UP WITH HER PMD FOR FURTHER WORKUP]
[2018-09-02] MEDS: Potassium Chloride 20 mEq ER Tab PO SCH ×2 (10:11→17:53)
[2018-09-02] MEDS: Ciprofloxacin 400mg/200ml D5W 400 MG/200 ML BAG IVPB SCH ×2 (10:14→20:57)
[2018-09-02] MEDS: Cholestyramine 4 gm/Pkt UD PO SCH (10:14)
[2018-09-02] MEDS: Enoxaparin 30 mg Syringe SC SCH (10:26)
--- NOTE | 2018-09-02 12:54 | CP.PCM.PN ---
Subjective - Date & Time of Evaluation Date of Evaluation: 09/02/18 Time of Evaluation: 12:53 - Subjective Subjective: GI progress note for Dr. Fouzia Cooper, PGY-2 Pt S & E at bedside at 1220 Pt resting comfortably in bed. Sister at bedsided. Reports that pt will be discharged tomorrow with plans to go to [facility] for scoping. Pt reports 2 normal caliber, non bloody BMs today. Denies F & C, abdominal pain, other complaints. Objective - Vital Signs/Intake and Output Vital Signs (last 24 hours): Temp Pulse Resp BP Pulse Ox 98.1 F 61 18 105/67 97 09/02/18 12:10 09/02/18 12:10 09/02/18 12:10 09/02/18 12:10 09/02/18 12:10 - Medications Medications: Current Medications Cholestyramine Resin (Questran) 4 gm PO DAILY [facility] Last Admin: 09/02/18 10:14 Dose: 4 gm Cyanocobalamin (Vitamin B12 1000 Mcg/Ml Inj) 1,000 mcg IM DAILY [facility] Last Admin: 09/02/18 10:14 Dose: 1,000 mcg Enoxaparin Sodium (Lovenox) 30 mg SC DAILY [facility]; Protocol Last Admin: 09/02/18 10:26 Dose: 30 mg Ciprofloxacin (Cipro 400mg/200ml Dsw) 400 mg in 200 mls @ 200 mls/hr IVPB Q12 [facility]; Protocol Last Admin: 09/02/18 10:14 Dose: 200 mls/hr Metronidazole (Flagyl 500mg/100ml Ns) 100 mls @ 100 mls/hr IVPB Q8 [facility]; Protoco l Last Admin: 09/02/18 10:10 Dose: 100 mls/hr Levothyroxine Sodium (Synthroid) 50 mcg PO DAILY@0630 [facility] Last Admin: 09/02/18 06:01 Dose: 50 mcg Metoprolol Tartrate (Lopressor) 6.25 mg PO Q12 [facility] Last Admin: 09/02/18 10:12 Dose: 6.25 mg Pantoprazole Sodium (Protonix Inj) 40 mg IVP DAILY [facility] Last Admin: 09/02/18 10:13 Dose: 40 mg Potassium Chloride (K-Dur 20 Meq Er Tab) 20 meq PO BID [facility] Last Admin: 09/02/18 10:11 Dose: 20 meq - Labs Labs: 09/02/18 05:19 09/02/18 05:19 - Constitutional Appears: Non-toxic, No Acute Distress - Head Exam Head Exam: ATRAUMATIC, NORMAL INSPECTION, NORMOCEPHALIC - Eye Exam Eye Exam: EOMI, Normal appearance - ENT Exam ENT Exam: Mucous Membranes Moist, Normal Exam - Neck Exam Neck Exam: Full ROM, Normal Inspection - Respiratory Exam Respiratory Exam: Clear to Ausculation Bilateral, NORMAL BREATHING PATTERN. absent: Prolonged Expiratory Phase, Rhonchi, Wheezes, Respiratory Distress - Cardiovascular Exam Cardiovascular Exam: REGULAR RHYTHM, +S1, +S2 - GI/Abdominal Exam GI & Abdominal Exam: Soft, Normal Bowel Sounds. absent: Distended, Firm, Guarding, Rigid, Tenderness - Extremities Exam Extremities Exam: Normal Inspection - Neurological Exam Neurological Exam: Alert, Awake, CN II-XII Intact, Oriented x3 - Psychiatric Exam Psychiatric exam: Normal Affect, Normal Mood - Skin Skin Exam: Dry, Intact, Normal Color, Warm Assessment and Plan - Assessment and Plan (Free Text) Assessment: 78F w/recurrent diarrhea Plan: Stool neg for salmonella, shigella, camphylobacter FOB neg Stool leukocytes positive Hypokalemia now 3.2 from 2.7 JEANMARIE resolving CRP high- 43.3 B12 low- 191 Immunological work up pending Plan to go to [place] for EGD/colonoscopy upon d/c tomorrow CONNOR Cooper, PGY-2
--- NOTE | 2018-09-02 19:42 | CP.PCM.PN ---
Subjective - Date & Time of Evaluation Date of Evaluation: 09/02/18 Time of Evaluation: 19:31 - Subjective Subjective: Feels stronger. Not currently having diarrhea. Objective - Vital Signs/Intake and Output Vital Signs (last 24 hours): Temp Pulse Resp BP Pulse Ox 98 F 81 20 146/69 97 09/02/18 19:28 09/02/18 19:28 09/02/18 19:28 09/02/18 19:28 09/02/18 19:28 Intake and Output: 09/02/18 09/03/18 18:59 06:59 Intake Total 1140 Balance 1140 - Medications Medications: Current Medications Cholestyramine Resin (Questran) 4 gm PO DAILY [facility] Last Admin: 09/02/18 10:14 Dose: 4 gm Cyanocobalamin (Vitamin B12 1000 Mcg/Ml Inj) 1,000 mcg IM DAILY [facility] Last Admin: 09/02/18 10:14 Dose: 1,000 mcg Enoxaparin Sodium (Lovenox) 30 mg SC DAILY [facility]; Protocol Last Admin: 09/02/18 10:26 Dose: 30 mg Ciprofloxacin (Cipro 400mg/200ml Dsw) 400 mg in 200 mls @ 200 mls/hr IVPB Q12 [facility]; Protocol Last Admin: 09/02/18 10:14 Dose: 200 mls/hr Metronidazole (Flagyl 500mg/100ml Ns) 100 mls @ 100 mls/hr IVPB Q8 [facility]; Protocol Last Admin: 09/02/18 17:54 Dose: 100 mls/hr Levothyroxine Sodium (Synthroid) 50 mcg PO DAILY@0630 [facility] Last Admin: 09/02/18 06:01 Dose: 50 mcg Metoprolol Tartrate (Lopressor) 6.25 mg PO Q12 [facility] Last Admin: 09/02/18 10:12 Dose: 6.25 mg Pantoprazole Sodium (Protonix Inj) 40 mg IVP DAILY [facility] Last Admin: 09/02/18 10:13 Dose: 40 mg Potassium Chloride (K-Dur 20 Meq Er Tab) 20 meq PO BID [facility] Last Admin: 09/02/18 17:53 Dose: 20 meq - Labs Labs: 09/02/18 05:19 09/02/18 05:19 - Head Exam Head Exam: ATRAUMATIC - Eye Exam Eye Exam: Normal appearance - ENT Exam ENT Exam: Normal Exam - Respiratory Exam Respiratory Exam: Clear to Ausculation Bilateral - Cardiovascular Exam Cardiovascular Exam: REGULAR RHYTHM, +S1, +S2 - Rectal Exam Rectal Exam: NORMAL INSPECTION Assessment and Plan (1) Diarrhea Assessment & Plan: Clinically better. Labs show fecal leukocytes and CRP are elevated, however WBC and temp are normal. Electrolytes are much better. Continue cholestyramine and low fat, gluten/lactose free diet. May stop metronidazole tomorrow. Patient desires to have colonoscopy as outpatient elsewhere. Status: Acute
[2018-09-03] MEDS: metroNIDAZOLE 500mg/100ml NS 100 ML IVPB SCH ×2 (00:14→09:44)
[2018-09-03] MEDS: Levothyroxine 50 MCG TAB PO SCH (06:14)
--- NOTE | 2018-09-03 08:51 | CP.PCM.PCO ---
Assessment & Plan - Assessment and Plan (Free Text) Assessment: pt. doing well, denies fever, chills, n/v/d cleared for discharge to home today by d/c Home on Gluten Free, Lactose Free diet cont. Questran f/u with GI for outpatient colonoscopy./endoscopy
[2018-09-03] MEDS: Cholestyramine 4 gm/Pkt UD PO SCH (09:25)
[2018-09-03] MEDS: Potassium Chloride 20 mEq ER Tab PO SCH (09:25)
[2018-09-03] MEDS: Enoxaparin 30 mg Syringe SC SCH (09:43)
[2018-09-03] MEDS: Ciprofloxacin 400mg/200ml D5W 400 MG/200 ML BAG IVPB SCH (09:44)
--- NOTE | 2018-09-03 12:55 | CP.PCM.DIS ---
Provider - Provider Date of Admission: 08/30/18 21:37 Attending physician: Jeovany Swartz MD Time Spent in preparation of Discharge (in minutes): 30 Diagnosis - Discharge Diagnosis (1) Diarrhea Status: Acute (2) Hypertension Status: Acute (3) Hypothyroidism Status: Acute Hospital Course - Lab Results Lab Results: Micro Results 08/30/18 17:45 Blood Blood Culture - Preliminary NO GROWTH AFTER 3 DAYS 08/31/18 14:43 Stool Ova and Parasite Concentrate Exam - Final 08/30/18 17:07 Blood Blood Culture - Preliminary NO GROWTH AFTER 3 DAYS 08/30/18 17:19 Stool Stool Culture - Final NO SALMONELLA, SHIGELLA OR CAMPYLOBACTER ISOLATED. 08/30/18 16:58 Urine,Clean Catch Urine Culture - Final Beta Hemolytic Strep Group B Most Recent Lab Values WBC 6.2 K/uL (4.8-10.8) 09/02/18 05:19 RBC 3.27 Mil/uL (3.80-5.20) L 09/02/18 05:19 Hgb 11.2 g/dL (12.0-16.0) L 09/02/18 05:19 Hct 32.6 % (34.0-47.0) L 09/02/18 05:19 MCV 99.8 fl (81.0-99.0) H 09/02/18 05:19 MCH 34.3 pg (27.0-31.0) H 09/02/18 05:19 MCHC 34.4 g/dL (33.0-37.0) 09/02/18 05:19 RDW 12.9 % (11.5-14.5) 09/02/18 05:19 Plt Count 161 K/uL (130-400) 09/02/18 05:19 MPV 8.7 fl (7.2-11.7) 09/02/18 05:19 Neut % (Auto) 52.4 % (50.0-75.0) 09/02/18 05:19 Lymph % (Auto) 21.7 % (20.0-40.0) 09/02/18 05:19 [place] % (Auto) 12.8 % (0.0-10.0) H 09/02/18 05:19 Eos % (Auto) 12.3 % (0.0-4.0) H 09/02/18 05:19 Baso % (Auto) 0.8 % (0.0-2.0) 09/02/18 05:19 Neut # (Auto) 3.2 K/uL (1.8-7.0) 09/02/18 05:19 Lymph # (Auto) 1.3 K/uL (1.0-4.3) 09/02/18 05:19 [place] # (Auto) 0.8 K/uL (0.0-0.8) 09/02/18 05:19 Eos # (Auto) 0.8 K/uL (0.0-0.7) H 09/02/18 05:19 Baso # (Auto) 0.0 K/uL (0.0-0.2) 09/02/18 05:19 Sodium 141 mmol/l (132-148) 09/03/18 04:20 Potassium 3.5 MMOL/L (3.6-5.0) L 09/03/18 04:20 Chloride 110 mmol/L (98-107) H 09/03/18 04:20 Carbon Dioxide 24 mmol/L (22-30) 09/03/18 04:20 Anion Gap 11 (10-20) 09/03/18 04:20 BUN 10 mg/dl (7-17) 09/03/18 04:20 Creatinine 1.1 mg/dl (0.7-1.2) 09/03/18 04:20 Est GFR ( Amer) 58 09/03/18 04:20 Est GFR (Non-Af Amer) 48 09/03/18 04:20 Random Glucose 116 mg/dL (65-105) H 09/03/18 04:20 Lactic Acid 1.4 MMOL/L (0.7-2.1) 08/30/18 17:25 Calcium 9.0 mg/dL (8.4-10.2) 09/03/18 04:20 Phosphorus 4.0 mg/dl (2.5-4.5) 08/30/18 19:07 Magnesium 2.1 MG/DL (1.6-2.3) 08/30/18 19:07 Iron 52 ug/dL (37-170) 09/01/18 05:16 Total Bilirubin 0.5 mg/dl (0.2-1.3) 08/30/18 19:07 AST 34 U/L (14-36) 08/30/18 19:07 ALT 18 U/L (9-52) 08/30/18 19:07 Alkaline Phosphatase 71 U/L (38-126) 08/30/18 19:07 C-Reactive Protein 43.30 mg/L (0.0-9.9) H 09/01/18 05:16 Total Protein 8.3 G/DL (6.3-8.2) H 08/30/18 19:07 Albumin 4.2 g/dL (3.5-5.0) 08/30/18 19:07 Globulin 4.1 gm/dL (2.2-3.9) H 08/30/18 19:07 Albumin/Globulin Ratio 1.0 (1.0-2.1) 08/30/18 19:07 Lipase 372 U/L (23-300) H 08/30/18 19:07 Vitamin B12 191 pg/mL (239-931) L 09/01/18 05:16 Folate 14.3 ng/mL 09/01/18 05:16 TSH 3rd Generation 1.29 mIU/ML (0.46-4.68) 08/30/18 19:07 Urine Color Yellow (YELLOW) 08/30/18 16:58 Urine Clarity Slighty-cloudy (Clear) 08/30/18 16:58 Urine pH 5.0 (5.0-8.0) 08/30/18 16:58 Ur Specific [place] 1.021 (1.003-1.030) 08/30/18 16:58 Urine Protein 30 mg/dL (NEGATIVE) 08/30/18 16:58 Urine Glucose (UA) Neg mg/dL (Normal) 08/30/18 16:58 Urine Ketones Negative mg/dL (NEGATIVE) 08/30/18 16:58 Urine Blood Negative (NEGATIVE) 08/30/18 16:58 Urine Nitrate Negative (NEGATIVE) 08/30/18 16:58 Urine Bilirubin Small (NEGATIVE) 08/30/18 16:58 Urine Urobilinogen 0.2-1.0 mg/dL (0.2-1.0) 08/30/18 16:58 Ur Leukocyte Esterase Mod Maggie/uL (Negative) 08/30/18 16:58 Urine RBC (Auto) 3 /hpf (0-3) 08/30/18 16:58 Urine Microscopic WBC 48 /hpf (0-5) H 08/30/18 16:58 Ur Squamous Epith Cells < 1 /hpf (0-5) 08/30/18 16:58 Urine Bacteria Rare (<OCC) 08/30/18 16:58 Hyaline Casts 0-2 /hpf (0-2) 08/30/18 16:58 Stool Fat, Qual See note 08/31/18 10:00 Stool Occult Blood Negative (NEGATIVE) 08/31/18 13:04 Stool Leukocytes, Qual Positive (NEGATIVE) H 08/31/18 11:26 Stool Globin Immunochem Detected (Not Detected) H 08/31/18 10:00 IgA 238 mg/dL (81-463) 09/01/18 05:16 - Hospital Course Hospital Course: FEELS BETTER REFUSES FURTHER GASTRO WORKUP WILL FOLLOW WITH HER PMD - Date & Time of H&P Date of H&P: 09/03/18 Time of H&P: 12:54 Discharge Exam - Head Exam Head Exam: ATRAUMATIC - Eye Exam Eye Exam: EOMI, Normal appearance, PERRL Pupil Exam: NORMAL ACCOMODATION, PERRL - GI/Abdominal Exam GI & Abdominal Exam: Normal Bowel Sounds - Rectal Exam Rectal Exam: NORMAL INSPECTION - Neurological Exam Neurological exam: Alert, CN II-XII Intact, Normal Gait, Oriented x3, Reflexes Normal - Psychiatric Exam Psychiatric exam: Normal Affect, Normal Mood - Skin Skin Exam: Dry, Intact, Normal Color, Warm Discharge Plan - Discharge Medications Prescriptions: Potassium Chloride [K-Dur 20 mEq ER Tab] 20 meq PO BID #4 tab Metoprolol Tartrate [Lopressor] 6.25 mg PO Q12 #60 tab Cholestyramine [Questran] 4 gm PO DAILY #14 packet - Follow Up Plan Condition: FAIR Disposition: HOME/ ROUTINE Instructions: Diarrhea and Traveler's Diarrhea, Adult (DC) Additional Instructions: follow up with pmd in 1 week Referrals: Hallie Cook MD [Family Provider] - Paolo Eugene MD [Staff Provider] -
--- NOTE | 2018-09-03 15:21 | CP.PCM.PN ---
Subjective - Date & Time of Evaluation Date of Evaluation: 09/03/18 Time of Evaluation: 09:00 - Subjective Subjective: Patient without diarrhea or abdominal pain. Objective - Vital Signs/Intake and Output Vital Signs (last 24 hours): Temp Pulse Resp BP Pulse Ox 98.2 F 67 18 124/62 96 09/03/18 13:00 09/03/18 13:00 09/03/18 13:00 09/03/18 13:00 09/03/18 13:00 - Medications Medications: Current Medications Cholestyramine Resin ([facility]ran) 4 gm PO DAILY [facility] Last Admin: 09/03/18 09:25 Dose: 4 gm Cyanocobalamin (Vitamin B12 1000 Mcg/Ml Inj) 1,000 mcg IM DAILY [facility] Last Admin: 09/03/18 09:36 Dose: 1,000 mcg Ciprofloxacin (Cipro 400mg/200ml Dsw) 400 mg in 200 mls @ 200 mls/hr IVPB Q12 [facility]; Protocol Last Admin: 09/03/18 09:44 Dose: Not Given Metronidazole (Flagyl 500mg/100ml Ns) 100 mls @ 100 mls/hr IVPB Q8 [facility]; Protocol Last Admin: 09/03/18 09:44 Dose: Not Given Levothyroxine Sodium (Synthroid) 50 mcg PO DAILY@0630 [facility] Last Admin: 09/03/18 06:14 Dose: 50 mcg Metoprolol Tartrate (Lopressor) 6.25 mg PO Q12 [facility] Last Admin: 09/03/18 09:23 Dose: 6.25 mg Pantoprazole Sodium (Protonix Inj) 40 mg IVP DAILY [facility] Last Admin: 09/03/18 09:25 Dose: Not Given Potassium Chloride (K-Dur 20 Meq Er Tab) 20 meq PO BID [facility] Last Admin: 09/03/18 09:25 Dose: 20 meq - Labs Labs: 09/02/18 05:19 09/03/18 04:20 - Head Exam Head Exam: ATRAUMATIC - Eye Exam Eye Exam: PERRL - ENT Exam ENT Exam: Mucous Membranes Moist - Neck Exam Neck Exam: Full ROM - Respiratory Exam Respiratory Exam: Clear to Ausculation Bilateral - Cardiovascular Exam Cardiovascular Exam: REGULAR RHYTHM, +S1, +S2 - GI/Abdominal Exam GI & Abdominal Exam: Soft, Normal Bowel Sounds. absent: Tenderness Assessment and Plan (1) Diarrhea Assessment & Plan: Clinically much better. May stop ABX. Continue Questran. Low fat, gluten free, lactose free diet. Status: Acute
[2018-09-03 15:59] VITALS: BP 123/68; PULSE 73; RESP 16; TEMP 97.8
[2018-09-06 16:35] VITALS: O2SAT 98
== END 2018-09-03 16:00 | disposition home or self-care (01) | DRG 392 ==
LOC: H.ER 15:16 → H.ERHOLD 21:37 → H.TEL 08-31 00:40
PROVIDERS: ADMIT Internal Medicine Pulmonary Disease; ATTEND Internal Medicine Pulmonary Disease
DX: K52.89 Other specified noninfective gastroenteritis and colitis (principal); I12.9 Hypertensive chronic kidney disease with stage 1 through stage 4 chronic kidney disease, or unspecified chronic kidney disease; N18.9 Chronic kidney disease, unspecified; E03.9 Hypothyroidism, unspecified; E86.0 Dehydration; E87.6 Hypokalemia; E78.00 Pure hypercholesterolemia, unspecified; J45.909 Unspecified asthma, uncomplicated; G62.9 Polyneuropathy, unspecified; M43.16 Spondylolisthesis, lumbar region; Z86.73 Personal history of transient ischemic attack (TIA), and cerebral infarction without residual deficits; Z90.49 Acquired absence of other specified parts of digestive tract

== ENCOUNTER 2018-10-20 21:33 | Inpatient (IN) | payer MEDICARE ==
[2018-10-20 21:33] VITALS: BMI 23.6
[2018-10-20 22:35] LABS: BASO # 0.1 K/uL (0.0-0.2); BASO % 0.9 % (0.0-2.0); EOS # 0.7 K/uL (0.0-0.7); EOS % 9.9 % (0.0-4.0); LYMPH # 1.5 K/uL (1.0-4.3); LYMPH % 21.8 % (20.0-40.0); MEAN CELL VOLUME 102.2 fl (81.0-99.0); MEAN CORPUSCULAR HGB CONC 33.3 g/dL (33.0-37.0); MEAN PLATELET VOLUME 9.3 fl (7.2-11.7); MONO # 0.6 K/uL (0.0-0.8); MONO % 8.7 % (0.0-10.0); NEUT % 58.7 % (50.0-75.0); NRBC % 0.1 % (0.0-0.0); RBC 3.23 Mil/uL (3.80-5.20); RED CELL DISTRIBUTION WIDTH 13.6 % (11.5-14.5); WHITE BLOOD COUNT 6.7 K/uL (4.8-10.8)
[2018-10-20 22:43] LABS: BLOOD UREA NITROGEN 17 mg/dl (7-17); GFR NON-AFRICAN AMERICAN 36
[2018-10-20 22:46] LABS: INR 1.1
[2018-10-20 22:49] LABS: PARTIAL THROMBOPLASTIN TIME 22.3 Seconds (25.6-37.1)
--- NOTE | 2018-10-20 22:57 | ED PDOC ---
HPI: Seizure Time Seen by Provider: 10/20/18 22:18 Chief Complaint (Nursing): Altered Mental Status Chief Complaint (Provider): Seizure History Per: Patient, Family History/Exam Limitations: no limitations Recent Seizure Activity Began: Just Before Arrival Number Of Seizures: One Length Of Seizures (Duration): Minutes (x2) Additional Complaint(s): 78 y/o female with a PMHx of HTN presents to the ED for evaluation of one episode of a seizure, onset prior to arrival. Seizure was witnessed by family members and associated with body shakes. Patient developed seizure while sitting in a chair. Thus, there was no fall or head injury. According to family members, seizure lasted for approximately two minutes followed by several minutes of sleepy behavior. Patient woke up completely normal after several minutes sleeping. According to patient and family, this is the first time the patient has had a seizure episode. Patient herself is a good historian and offers no complaints at this time. Of note, two weeks ago, patient reports she had an ac cidental fall and hit her head. Patient was seen at [facility] where a negative CT was performed. Patient reports since fall, she has felt okay. Patient additionally has a history of TIAs for which she is taking aspirin. PMD: Dr. Cook at [facility] Neurologist: Dr. Saleh NIHSS Stroke Scale - Date/Time Evaluation Performed Date Performed: 10/20/18 Time Performed: 22:25 When Was NIHSS Performed: Baseline - How Severe is the Stroke Level of Consciousness: 0=Alert LOC to Questions: 0=Both comments correct LOC to commands: 0=Obeys both correctly Best Gaze: 0=Normal Visual: 0=No visual loss Facial: 0=Normal Motor Arm - Left: 0=No drift Motor Arm - Right: 0=No drift Motor Leg - Left: 0=No drift Motor Leg - Right: 0=No drift Limb Ataxia: 0=Absent Sensory: 0=Normal Best Language: 0=No aphasia Dysarthia: 0=Normal articulation Extinction & Inattention (Neglect): 0=Normal, no object Score: 0 rTPA Inclusion/Exclusion - Refusal of Treatment Patient Refused Treatment: No - Inclusion Criteria for Altepase Patient is 18 years or Older: Yes The Clinical Diagnosis of Ischemic Stroke That is Causing a Potentially Disabling Neurological Deficit: No Time of Onset is Well Established to be Less Than 270 Minute Before Treatment Would Begin: No Risk/Benefit Discussed With Patient/Family Member Present: No Past Medical History Reviewed: Historical Data, Nursing Documentation, Vital Signs Vital Signs: Last Vital Signs Temp 98 F 10/20/18 21:36 Pulse 72 10/20/18 21:36 Resp 16 10/20/18 21:36 BP 130/79 10/20/18 21:36 Pulse Ox 97 10/20/18 21:36 - Medical History PMH: Gall Bladder Disease, HTN, Hypercholesterolemia, Hypothyroidism, Chronic Kidney Disease (BLADDER LIFT), TIA - Surgical History Surgical History: Cholecystectomy - Family History Family History: States: Unknown Family Hx - Living Arrangements Living Arrangements: With Family - Immunization History Hx Tetanus Toxoid Vaccination: Yes Hx Influenza Vaccination: No Hx Pneumococcal Vaccination: No - Home Medications Home Medications: Ambulatory Orders Medication Instructions Recorded RX: Levothyroxine [Synthroid] 50 mcg PO DAILY 08/30/18 RX: Aspirin [Aspirin Chewable] 81 mg PO DAILY 10/20/18 Metoprolol Tartrate [Lopressor] 50 mg PO BID 10/21/18 Montelukast [Singulair] 10 mg PO DAILY 10/21/18 - Allergies Allergies/Adverse Reactions: Allergies Allergy/AdvReac Type Severity Reaction Status Date / Time No Known Allergies Allergy Verified 10/13/18 09:48 Review of Systems ROS Statement: Except As Marked, All Systems Reviewed And Found Negative Neurological: Positive for: Seizures Physical Exam - Reviewed Nursing Documentation Reviewed: Yes Vital Signs Reviewed: Yes - Physical Exam Appears: Positive for: No Acute Distress Head Exam: Positive for: ATRAUMATIC, NORMOCEPHALIC Skin: Positive for: Normal Color, Warm, Dry Eye Exam: Positive for: Normal appearance, EOMI, PERRL Neck: Positive for: Normal, Painless ROM Cardiovascular/Chest: Positive for: Regular Rate, Rhythm. Negative for: Murmur Respiratory: Positive for: Normal Breath Sounds. Negative for: Respiratory Distress Gastrointestinal/Abdominal: Positive for: Normal Exam, Soft, Tenderness Back: Positive for: Normal Inspection. Negative for: L CVA Tenderness, R CVA Tenderness, Vertebral Tenderness Extremity: Positive for: Normal ROM. Negative for: Pedal Edema, Deformity Neurologic/Psych: Positive for: Alert, Oriented. Negative for: Motor/Sensory Deficits - Laboratory Results Result Diagrams: 10/21/18 07:39 10/21/18 07:39 - ECG O2 Sat by Pulse Oximetry: 97 (RA) Pulse Ox Interpretation: Normal Medical Decision Making Medical Decision Making: Time: 2229 Impression: Seizure Plan: -- CT Head w/o contrast -- EKG -- Alcohol Serum -- BMP -- Urine Drug Screen -- Troponin I -- CBC with Differentials -- PTT -- Prothrombin Time Scribe Attestation: Documented by Ayah Suresh, acting as a scribe for Kira Patten MD. Provider Scribe Attestation: All medical record entries made by the Scribe were at my direction and personally dictated by me. I have reviewed the chart and agree that the record accurately reflects my personal performance of the history, physical exam, medical decision making, and the department course for this patient. I have also personally directed, reviewed, and agree with the discharge instructions and disposition. Disposition - Clinical Impression Clinical Impression: Seizure - Patient ED Disposition Is Patient to be Admitted: Transfer of Care Counseled Patient/Family Regarding: Studies Performed, Diagnosis - Disposition Disposition Time: 00:00 Condition: STABLE Patient Signed Over To: Andrea Torres
--- NOTE | 2018-10-20 23:15 | ED PDOC ---
- Laboratory Results Result Diagrams: 10/21/18 07:39 10/21/18 07:39 - ECG O2 Sat by Pulse Oximetry: 97 (RA) Medical Decision Making Medical Decision Makin Patient care endorsed from Dr. Patten to this provider pending CT and reevaluation. 2317 CT Brain FINDINGS: BRAIN Chronic periventricular and subcortical microvascular disease is seen. VENTRICLES: There is generalized parenchymal atrophy noted as demonstrated by symmetrical dilatation of ventricles and sulci. ORBITS: The orbits are unremarkable. SINUSES AND MASTOIDS: The paranasal sinuses and mastoid air cells are clear. BONES: No fracture. SOFT TISSUES: Unremarkable. MISCELLANEOUS: No acute intracranial pathology. IMPRESSION: 1. There is generalized parenchymal atrophy noted as demonstrated by symmetrical dilatation of ventricles and sulci. 2. Chronic periventricular and subcortical microvascular disease is seen. 3. No acute intracranial pathology. 2323 Patient is to be hospitalized as observation for new onset seizure. Case referred to Dr. Huitron. Scribe Attestation: Documented by Lori Marcus, acting as a scribe for Andrea Torres MD. Provider Scribe Attestation: All medical record entries made by the Scribe were at my direction and personally dictated by me. I have reviewed the chart and agree that the record accurately reflects my personal performance of the history, physical exam, medical decision making, and the department course for this patient. I have also personally directed, reviewed, and agree with the discharge instructions and disposition. Disposition - Clinical Impression Clinical Impression: Seizure - POA Present On Arrival: None - Disposition Disposition: Routine/Home Disposition Time: 23:30 Condition: STABLE
--- NOTE | 2018-10-21 07:43 | CP.PCM.HP ---
History of Present Illness - History of Present Illness History of Present Illness: 78 y/o female with a PMHx of HTN presents to the ED after one episode of a seizure that was witnessed by family members. Patient developed seizure while sitting in a chair they denies fall or head injury. Per family episode lasted approximately two minutes and after that she was sleepy. Today patient reports feeling better and endorses that two weeks ago she had an accidental fall and hit her head w/o LOC, she was seen at [facility] and reports that head CT was performed and was negative. Patient reports since fall, she has felt okay. Patient additionally has a history of TIAs for which she is taking aspirin. According to patient and family, this is the first time the patient has had a seizure episode. Patient does no has any other complaints at this time. PMD: Dr. Cook at [facility] Neurologist: Dr. Saleh Present on Admission - Present on Admission Any Indicators Present on Admission: No Review of Systems - Review of Systems All systems: reviewed and no additional remarkable complaints except (HPI) Past Patient History - Infectious Disease Hx of Infectious Diseases: None - Past Medical History & Family History Past Medical History?: Yes - Past Social History Smoking Status: Never Smoked - CARDIAC Hx Cardiac Disorders: Yes (HTN, high cholesterol) Hx Hypercholesterolemia: Yes Hx Hypertension: Yes - PULMONARY Hx Respiratory Disorders: No - NEUROLOGICAL Hx Neurological Disorder: Yes (TIA, Seizure disorder) Hx Seizures: Yes Hx Transient Ischemic Attacks (TIA): Yes - HEENT Hx HEENT Problems: No - RENAL Hx Chronic Kidney Disease: Yes (BLADDER LIFT) - ENDOCRINE/METABOLIC Hx Endocrine Disorders: Yes (hypothyroidism) - HEMATOLOGICAL/ONCOLOGICAL Hx Blood Disorders: No - INTEGUMENTARY Hx Dermatological Problems: No - MUSCULOSKELETAL/RHEUMATOLOGICAL Hx Musculoskeletal Disorders: No Hx Falls: Yes - GASTROINTESTINAL Hx Gall Bladder Disease: Yes - GENITOURINARY/GYNECOLOGICAL Hx Genitourinary Disorders: No - PSYCHIATRIC Hx Psychophysiologic Disorder: No - SURGICAL HISTORY Hx Surgeries: Yes Hx Cholecystectomy: Yes - ANESTHESIA Hx Anesthesia: Yes Hx Anesthesia Reactions: No Hx Malignant Hyperthermia: No Meds Allergies/Adverse Reactions: Allergies Allergy/AdvReac Type Severity Reaction Status Date / Time No Known Allergies Allergy Verified 10/13/18 09:48 Physical Exam - Constitutional Appears: No Acute Distress - Head Exam Head Exam: ATRAUMATIC, NORMOCEPHALIC - Eye Exam Eye Exam: Periorbital swelling (mild with lower eyelid bruise b/l) - Respiratory Exam Respiratory Exam: Clear to Auscultation Bilateral, NORMAL BREATHING PATTERN - Cardiovascular Exam Cardiovascular Exam: REGULAR RHYTHM, +S1, +S2 - GI/Abdominal Exam GI & Abdominal Exam: Normal Bowel Sounds, Soft. absent: Distended, Tenderness - Extremities Exam Extremities exam: Negative for: pedal edema - Neurological Exam Neurological exam: Alert, Oriented x3 - Skin Skin Exam: Dry, Warm Results - Vital Signs Recent Vital Signs: Last Vital Signs Temp 97.6 F 10/21/18 05:56 Pulse 55 L 10/21/18 05:56 Resp 18 10/21/18 05:56 BP 128/64 10/21/18 05:56 Pulse Ox 96 10/21/18 05:56 - Labs Result Diagrams: 10/21/18 07:39 10/21/18 07:39 Labs: Laboratory Results - last 24 hr 10/20/18 10/20/18 10/20/18 22:02 22:30 22:30 WBC 6.7 RBC 3.23 L Hgb 11.0 L Hct 33.0 L MCV 102.2 H D MCH 34.0 H MCHC 33.3 RDW 13.6 Plt Count 192 MPV 9.3 Neut % (Auto) 58.7 Lymph % (Auto) 21.8 [place] % (Auto) 8.7 Eos % (Auto) 9.9 H Baso % (Auto) 0.9 Neut # (Auto) 4.0 Lymph # (Auto) 1.5 [place] # (Auto) 0.6 Eos # (Auto) 0.7 Baso # (Auto) 0.1 PT INR APTT Sodium 139 Potassium 4.0 Chloride 105 Carbon Dioxide 26 Anion Gap 12 BUN 17 Creatinine 1.4 H Est GFR ( Amer) 44 Est GFR (Non-Af Amer) 36 POC Glucose (mg/dL) 92 Random Glucose 92 Calcium 9.0 Troponin I < 0.0120 Alcohol, Quantitative < 10 10/20/18 22:30 WBC RBC Hgb Hct MCV MCH MCHC RDW Plt Count MPV Neut % (Auto) Lymph % (Auto) [place] % (Auto) Eos % (Auto) Baso % (Auto) Neut # (Auto) Lymph # (Auto) [place] # (Auto) Eos # (Auto) Baso # (Auto) PT 12.0 INR 1.1 APTT 22.3 L Sodium Potassium Chloride Carbon Dioxide Anion Gap BUN Creatinine Est GFR ( Amer) Est GFR (Non-Af Amer) POC Glucose (mg/dL) Random Glucose Calcium Troponin I Alcohol, Quantitative Assessment & Plan - Assessment and Plan (Free Text) Assessment: 78 yo female pt with PMH of HTN admitted for evaluation and management of new onset seizures Plan: stable, no in acute distress Head CT negative for acute intracranial abnormalities Neurology consulted s/p ativan once home medications resumed f/u cultures and labs in am rest of plan as ordered Case seen and examined with Dr Dewittuez
[2018-10-21 07:50] LABS: HEMOGLOBIN 10.7 g/dL (12.0-16.0); MEAN CELL VOLUME 103.8 fl (81.0-99.0); MEAN CORPUSCULAR HEMOGLOBIN 34.2 pg (27.0-31.0); RBC 3.12 Mil/uL (3.80-5.20); RED CELL DISTRIBUTION WIDTH 13.6 % (11.5-14.5); WHITE BLOOD COUNT 6.4 K/uL (4.8-10.8)
[2018-10-21 08:01] LABS: ALB/GLOB RATIO 0.9 (1.0-2.1); ALBUMIN 3.3 g/dL (3.5-5.0); CALCIUM 8.9 mg/dL (8.4-10.2)
--- NOTE | 2018-10-21 09:23 | CT ---
Date of service: 10/20/2018 PROCEDURE: CT HEAD WITHOUT CONTRAST. HISTORY: seizure COMPARISON: None available. TECHNIQUE: Axial computed tomography images were obtained through the head/brain without intravenous contrast. Radiation dose: Total exam DLP = 663.2 mGy-cm. This CT exam was performed using one or more of the following dose reduction techniques: Automated exposure control, adjustment of the mA and/or kV according to patient size, and/or use of iterative reconstruction technique. FINDINGS: HEMORRHAGE: No intracranial hemorrhage. BRAIN: No mass effect or edema. Mild diffuse atrophy. No chronic microvascular ischemic change. VENTRICLES: Unremarkable. No hydrocephalus. CALVARIUM: Unremarkable. PARANASAL SINUSES: Unremarkable as visualized. No significant inflammatory changes. MASTOID AIR CELLS: Unremarkable as visualized. No inflammatory changes. OTHER FINDINGS: None. IMPRESSION: Normal CT of the Head. No intracranial mass, hemorrhage or evidence of acute infarct. Mild diffuse atrophy. Otherwise unremarkable. The preliminary findings for this examination were reported by [facility] Radiology at 6:02 p.m. on 10/20/2018. There is concurrence of this report with the preliminary findings.
[2018-10-21 11:42] LABS: BARBITURATES, UR NEGATIVE (NEGATIVE); BENZODIAZEPINES, UR NEGATIVE (NEGATIVE); OPIATES, UR NEGATIVE (NEGATIVE); PHENCYCLIDINE, UR NEGATIVE (NEGATIVE)
[2018-10-21] MEDS ORDERED: levETIRAcetam 1,000 MG in Sodium Chloride 0.9% 100 ML IVPB ONE (11:45)
--- NOTE | 2018-10-21 12:00 | PCM.RRT ---
ASSOCIATE PROFESSOR OF PATHOLOGY Nurse Assessment - Situation ASSOCIATE PROFESSOR OF PATHOLOGY Responder Arrival Time: 11:40 ASSOCIATE PROFESSOR OF PATHOLOGY Called By: PARIS AllenReason for ASSOCIATE PROFESSOR OF PATHOLOGY - A) Acute Change in Patient: Subjective: PT is a 78 yo female with New onset of seizure was admitted for evaluation. ASSOCIATE PROFESSOR OF PATHOLOGY was called today at 11:40 due to patient was seizing. Upon arrival Patient was unresponsive, and still seizing. Vitals was 171/76 bp, hr 69, ox 98%. Keppra 1000mg IV was ordered and 2 mg of Ativan. Pt was suctioned and seizing episode was done. Vitals were repeated, bp 160/71 HR 68 and ox 100%. ASSOCIATE PROFESSOR OF PATHOLOGY was done at 11:46. - Head Head Exam: ATRAUMATIC, NORMAL INSPECTION, NORMOCEPHALIC - Eyes Eye Exam: Normal appearance - Respiratory Exam Respiratory Exam: Clear to Ausculation Bilateral, NORMAL BREATHING PATTERN - Cardiovascular Exam Cardiovascular Exam: REGULAR RHYTHM, +S1, +S2 - GI/Abdominal Exam GI & Abdominal Exam: Soft, Normal Bowel Sounds Plan - Assessment of Findings&Treatment Plan PT is a 78 yo female with New onset of seizure was admitted for evaluation. ASSOCIATE PROFESSOR OF PATHOLOGY was called due to episode of seizure. Vital were stabilized CT scan was done in ER: No acute disease noted Plan Pt received Ativan 2mg. PT received 1000mg Keppra Once. Start Keppra 500mg BID daily starting tomorrow. Follow up Neurology consult. Continue monitoring in telemetry.
--- NOTE | 2018-10-21 13:53 | CARD ---
APPROVED REPORT Date of service: 10/20/2018 EKG Measurement Heart [id number] <Conclusion> Normal sinus rhythm Inferior infarct, age undetermined Abnormal ECG
--- NOTE | 2018-10-22 02:59 | CP.PCM.CON ---
History of Present Illness - History of Present Illness History of Present Illness: 78 yr old woman who had several seizures, new onset. Spell had no prodrome, and patient was sitting when she started to shake for several minutes. THere is no report of urinary incontinence or tongue bite and patient was back to baseline by the time she was in [facility]. She was loaded with keppra and is tolerating well. PMH/PSH FH/SH All: ON exam: conductedin turkish. Normal neuro exam, except for memory testing which is complromised. Past Patient History - Infectious Disease Hx of Infectious Diseases: None - Past Medical History & Family History Past Medical History?: Yes - Past Social History Smoking Status: Never Smoked - CARDIAC Hx Cardiac Disorders: Yes (HTN, high cholesterol) Hx Hypercholesterolemia: Yes Hx Hypertension: Yes - PULMONARY Hx Respiratory Disorders: No - NEUROLOGICAL Hx Neurological Disorder: Yes (TIA, Seizure disorder) Hx Seizures: Yes Hx Transient Ischemic Attacks (TIA): Yes - HEENT Hx HEENT Problems: No - RENAL Hx Chronic Kidney Disease: Yes (BLADDER LIFT) - ENDOCRINE/METABOLIC Hx Endocrine Disorders: Yes (hypothyroidism) - HEMATOLOGICAL/ONCOLOGICAL Hx Blood Disorders: No - INTEGUMENTARY Hx Dermatological Problems: No - MUSCULOSKELETAL/RHEUMATOLOGICAL Hx Musculoskeletal Disorders: No Hx Falls: Yes - GASTROINTESTINAL Hx Gall Bladder Disease: Yes - GENITOURINARY/GYNECOLOGICAL Hx Genitourinary Disorders: No - PSYCHIATRIC Hx Psychophysiologic Disorder: No - SURGICAL HISTORY Hx Surgeries: Yes Hx Cholecystectomy: Yes - ANESTHESIA Hx Anesthesia: Yes Hx Anesthesia Reactions: No Hx Malignant Hyperthermia: No Meds Allergies/Adverse Reactions: Allergies Allergy/AdvReac Type Severity Reaction Status Date / Time No Known Allergies Allergy Verified 10/13/18 09:48 - Medications Medications: Current Medications Aspirin (Aspirin Chewable) 81 mg PO DAILY [facility] Last Admin: 10/21/18 08:51 Dose: 81 mg Levetiracetam (Keppra) 500 mg PO BID [facility] Levothyroxine Sodium (Synthroid) 50 mcg PO DAILY@0630 [facility] Metoprolol Tartrate (Lopressor) 50 mg PO BID [facility] Last Admin: 10/21/18 16:20 Dose: 50 mg Montelukast Sodium (Singulair) 10 mg PO DAILY [facility] Last Admin: 10/21/18 08:51 Dose: 10 mg Results - Vital Signs Recent Vital Signs: Last Vital Signs Temp 98.3 F 10/21/18 23:59 Pulse 61 10/21/18 23:59 Resp 16 10/21/18 23:59 BP 112/69 10/21/18 23:59 Pulse Ox 98 10/21/18 23:59 - Labs Result Diagrams: 10/21/18 07:39 10/21/18 07:39 Labs: Laboratory Results - last 24 hr 10/21/18 10/21/18 10/21/18 07:39 07:39 10:56 WBC 6.4 RBC 3.12 L Hgb 10.7 L Hct 32.4 L MCV 103.8 H MCH 34.2 H MCHC 33.0 RDW 13.6 Plt Count 182 Sodium 139 Potassium 3.9 Chloride 106 Carbon Dioxide 27 Anion Gap 10 BUN 15 Creatinine 1.3 H Est GFR ( Amer) 48 Est GFR (Non-Af Amer) 40 Random Glucose 85 Calcium 8.9 Total Bilirubin 0.3 AST 19 ALT 19 Alkaline Phosphatase 52 Total Protein 6.8 Albumin 3.3 L D Globulin 3.5 Albumin/Globulin Ratio 0.9 L Urine Opiates Screen Negative Urine Methadone Screen Negative Ur Barbiturates Screen Negative Ur Phencyclidine Scrn Negative Ur Amphetamines Screen Negative U Benzodiazepines Scrn Negative U Oth Cocaine Metabols Negative U Cannabinoids Screen Negative Assessment & Plan - Assessment and Plan (Free Text) Assessment: 78 yr old woman who may have a stroke as etiology for multiple seizures. SHe has no electrolyte abnormalities to explain events, nor is there sepsis or other issues. Plan: 1. MRI BRain without ernesto 2. EEG 3. Continue keppra [address] mg bid[address] THank you DR ro neurology
[2018-10-22] MEDS: Levothyroxine 50 MCG TAB PO SCH (06:16)
[2018-10-22 10:18] LABS: SQUAMOUS EPITHIAL < 1 /hpf (0-5); URINE BILIRUBIN NEGATIVE (NEGATIVE); URINE BLOOD NEGATIVE (NEGATIVE); URINE CLARITY CLEAR (Clear); URINE COLOR YELLOW (YELLOW); URINE GLUCOSE (UA) NEG (Normal); URINE LEUKOCYTE ESTERASE NEG Leu/uL (Negative); URINE PROTEIN NEGATIVE (NEGATIVE); URINE UROBILINOGEN 0.2-1.0 mg/dL (0.2-1.0)
--- NOTE | 2018-10-22 10:42 | MRI ---
Date of service: 10/22/2018 PROCEDURE: MRI BRAIN WITHOUT CONTRAST HISTORY: Seizure COMPARISON: None available. TECHNIQUE: Multiplanar, multisequence MR images of the brain were obtained without intravenous contrast enhancement. FINDINGS: HEMORRHAGE: None DWI: No evidence of an acute or early subacute infarction. BRAIN PARENCHYMA: Scattered chronic lacune is are identified at the bilateral cerebellar hemispheres. No definite lobar brain infarction appreciated of any timeframe. Diffuse cerebral atrophy chronic microangiopathy are identified. No mass effect. Midline brain anatomy appears grossly nonfocal. No definite pattern suggest mesial temporal sclerosis. Coronal imaging through the temporal lobes is unremarkable including high-resolution sequences. VENTRICLES: Unremarkable. No hydrocephalus. CRANIUM: Unremarkable. ORBITS: Grossly unremarkable. PARANASAL SINUSES/MASTOIDS: Multifocal inflammatory changes bilateral ethmoid air cells. VASCULAR SYSTEM: Skull base flow voids intact. OTHER FINDINGS: None. IMPRESSION: No definite acute intracranial findings bilaterally. Age-related degenerative change are identified as discussed above. 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
[2018-10-23] MEDS: Levothyroxine 50 MCG TAB PO SCH (05:46)
[2018-10-24] MEDS: Levothyroxine 50 MCG TAB PO SCH (05:58)
--- NOTE | 2018-10-24 22:17 | CP.PCM.PN ---
Subjective - Date & Time of Evaluation Date of Evaluation: 10/22/18 Time of Evaluation: 11:00 - Subjective Subjective: patient seen and examined at bedside. no acute events overnight interim events noted no complaints offered at this time neuro following Objective - Vital Signs/Intake and Output Vital Signs (last 24 hours): Temp Pulse Resp BP Pulse Ox 98.5 F 80 18 104/69 98 10/24/18 19:58 10/24/18 19:58 10/24/18 19:58 10/24/18 19:58 10/24/18 19:58 - Medications Medications: Current Medications Aspirin (Aspirin Chewable) 81 mg PO DAILY [facility] Last Admin: 10/24/18 09:19 Dose: 81 mg Levetiracetam (Keppra) 500 mg PO BID [facility] Last Admin: 10/24/18 17:19 Dose: 500 mg Levothyroxine Sodium (Synthroid) 50 mcg PO DAILY@0630 [facility] Last Admin: 10/24/18 05:58 Dose: 50 mcg Metoprolol Tartrate (Lopressor) 50 mg PO BID [facility] Last Admin: 10/24/18 17:20 Dose: Not Given Montelukast Sodium (Singulair) 10 mg PO DAILY [facility] Last Admin: 10/24/18 09:20 Dose: 10 mg - Labs Labs: 10/21/18 07:39 10/21/18 07:39 PT 12.0 Seconds (9.8-13.1) 10/20/18 22:30 INR 1.1 10/20/18 22:30 APTT 22.3 Seconds (25.6-37.1) L 10/20/18 22:30 - Constitutional Appears: Non-toxic - Head Exam Head Exam: NORMAL INSPECTION - Eye Exam Eye Exam: Normal appearance - Neck Exam Neck Exam: Normal Inspection - Respiratory Exam Respiratory Exam: NORMAL BREATHING PATTERN - Cardiovascular Exam Cardiovascular Exam: +S1, +S2 - GI/Abdominal Exam GI & Abdominal Exam: Soft - Neurological Exam Neurological Exam: Alert, Awake - Psychiatric Exam Psychiatric exam: Normal Affect, Normal Mood - Skin Skin Exam: Normal Color, Warm Assessment and Plan - Assessment and Plan (Free Text) Assessment: 78 yo female pt with PMH of HTN admitted due to new onset seizures Plan: stable, no in acute distress Head CT negative for acute intracranial abnormalities Neurology consulted, pending recommendations monitor labs monitor vitals rest of plan as ordered
--- NOTE | 2018-10-24 22:20 | CP.PCM.PN ---
Subjective - Date & Time of Evaluation Date of Evaluation: 10/23/18 Time of Evaluation: 11:00 - Subjective Subjective: patient seen and examined at bedside. no acute events overnight interim events noted no complaints offered at this time neuro following Objective - Vital Signs/Intake and Output Vital Signs (last 24 hours): Temp Pulse Resp BP Pulse Ox 98.5 F 80 18 104/69 98 10/24/18 19:58 10/24/18 19:58 10/24/18 19:58 10/24/18 19:58 10/24/18 19:58 - Medications Medications: Current Medications Aspirin (Aspirin Chewable) 81 mg PO DAILY [facility] Last Admin: 10/24/18 09:19 Dose: 81 mg Levetiracetam (Keppra) 500 mg PO BID [facility] Last Admin: 10/24/18 17:19 Dose: 500 mg Levothyroxine Sodium (Synthroid) 50 mcg PO DAILY@0630 [facility] Last Admin: 10/24/18 05:58 Dose: 50 mcg Metoprolol Tartrate (Lopressor) 50 mg PO BID [facility] Last Admin: 10/24/18 17:20 Dose: Not Given Montelukast Sodium (Singulair) 10 mg PO DAILY [facility] Last Admin: 10/24/18 09:20 Dose: 10 mg - Labs Labs: 10/21/18 07:39 10/21/18 07:39 PT 12.0 Seconds (9.8-13.1) 10/20/18 22:30 INR 1.1 10/20/18 22:30 APTT 22.3 Seconds (25.6-37.1) L 10/20/18 22:30 - Additional Findings Additional findings: - Constitutional Appears: Non-toxic - Head Exam Head Exam: NORMAL INSPECTION - Eye Exam Eye Exam: Normal appearance - Neck Exam Neck Exam: Normal Inspection - Respiratory Exam Respiratory Exam: NORMAL BREATHING PATTERN - Cardiovascular Exam Cardiovascular Exam: +S1, +S2 - GI/Abdominal Exam GI & Abdominal Exam: Soft - Neurological Exam Neurological Exam: Alert, Awake - Psychiatric Exam Psychiatric exam: Normal Affect, Normal Mood - Skin Skin Exam: Normal Color, Warm Assessment and Plan - Assessment and Plan (Free Text) Assessment: 78 yo female pt with PMH of HTN admitted due to new onset seizures Plan: Head CT negative for acute intracranial abnormalities Neurology consulted, MRI/EEG monitor labs monitor vitals rest of plan as ordered
--- NOTE | 2018-10-24 22:21 | CP.PCM.PN ---
Subjective - Date & Time of Evaluation Date of Evaluation: 10/24/18 Time of Evaluation: 11:00 - Subjective Subjective: patient seen and examined at bedside. no acute events overnight interim events noted no complaints offered at this time neuro following Objective - Vital Signs/Intake and Output Vital Signs (last 24 hours): Temp Pulse Resp BP Pulse Ox 98.5 F 80 18 104/69 98 10/24/18 19:58 10/24/18 19:58 10/24/18 19:58 10/24/18 19:58 10/24/18 19:58 - Medications Medications: Current Medications Aspirin (Aspirin Chewable) 81 mg PO DAILY [facility] Last Admin: 10/24/18 09:19 Dose: 81 mg Levetiracetam (Keppra) 500 mg PO BID [facility] Last Admin: 10/24/18 17:19 Dose: 500 mg Levothyroxine Sodium (Synthroid) 50 mcg PO DAILY@0630 [facility] Last Admin: 10/24/18 05:58 Dose: 50 mcg Metoprolol Tartrate (Lopressor) 50 mg PO BID [facility] Last Admin: 10/24/18 17:20 Dose: Not Given Montelukast Sodium (Singulair) 10 mg PO DAILY [facility] Last Admin: 10/24/18 09:20 Dose: 10 mg - Labs Labs: 10/21/18 07:39 10/21/18 07:39 PT 12.0 Seconds (9.8-13.1) 10/20/18 22:30 INR 1.1 10/20/18 22:30 APTT 22.3 Seconds (25.6-37.1) L 10/20/18 22:30 - Additional Findings Additional findings: - Constitutional Appears: Non-toxic - Head Exam Head Exam: NORMAL INSPECTION - Eye Exam Eye Exam: Normal appearance - Neck Exam Neck Exam: Normal Inspection - Respiratory Exam Respiratory Exam: NORMAL BREATHING PATTERN - Cardiovascular Exam Cardiovascular Exam: +S1, +S2 - GI/Abdominal Exam GI & Abdominal Exam: Soft - Neurological Exam Neurological Exam: Alert, Awake - Psychiatric Exam Psychiatric exam: Normal Affect, Normal Mood - Skin Skin Exam: Normal Color, Warm Assessment and Plan - Assessment and Plan (Free Text) Assessment: 78 yo female pt with PMH of HTN admitted due to new onset seizures Plan: Head CT negative for acute intracranial abnormalities Neurology consulted, MRI reviewed EEG pending monitor labs monitor vitals rest of plan as ordered
[2018-10-25] MEDS: Levothyroxine 50 MCG TAB PO SCH (05:46)
--- NOTE | 2018-10-25 12:45 | CP.PCM.PCO ---
Assessment & Plan - Assessment and Plan (Free Text) Assessment: pt. seen and examined, ambulating in hallway with PT Denies cp, dizziness, sob, neice at bedside pt. cleared for d/c by , EEG negative per pt. for ROSALINDA
--- NOTE | 2018-10-25 14:35 | CP.PCM.PN ---
Subjective - Date & Time of Evaluation Date of Evaluation: 10/25/18 Time of Evaluation: 14:35 - Subjective Subjective: Neurology Consultation Follow-Up Note: Mrs. Hawthorne is a 78 y/o woman who has been admitted for new onset seizures. She has been seizure free since admission and has been tolerating Keppra 500 mg PO BID well. Family at bedside admits to noticing pt having more energy. Pt currently denies headache, dizziness, visual changes, chest pain, shortness of breath, abd pain, n/v/d. She states that she will be going to rehab upon discha rge. Objective - Vital Signs/Intake and Output Vital Signs (last 24 hours): Temp Pulse Resp BP Pulse Ox 97.8 F 61 20 112/70 96 10/25/18 12:39 10/25/18 12:39 10/25/18 12:39 10/25/18 12:39 10/25/18 12:39 - Medications Medications: Current Medications Aspirin (Aspirin Chewable) 81 mg PO DAILY [facility] Last Admin: 10/25/18 09:32 Dose: 81 mg Levetiracetam (Keppra) 500 mg PO BID [facility] Last Admin: 10/25/18 09:32 Dose: 500 mg Levothyroxine Sodium (Synthroid) 50 mcg PO DAILY@0630 [facility] Last Admin: 10/25/18 05:46 Dose: 50 mcg Metoprolol Tartrate (Lopressor) 50 mg PO BID [facility] Last Admin: 10/25/18 09:31 Dose: 50 mg Montelukast Sodium (Singulair) 10 mg PO DAILY [facility] Last Admin: 10/25/18 09:32 Dose: 10 mg - Labs Labs: 10/21/18 07:39 10/21/18 07:39 PT 12.0 Seconds (9.8-13.1) 10/20/18 22:30 INR 1.1 10/20/18 22:30 APTT 22.3 Seconds (25.6-37.1) L 10/20/18 22:30 - Constitutional Appears: Well, Non-toxic, No Acute Distress - Head Exam Head Exam: ATRAUMATIC, NORMAL INSPECTION, NORMOCEPHALIC - Eye Exam Eye Exam: EOMI, Normal appearance Pupil Exam: NORMAL ACCOMODATION, PERRL - ENT Exam ENT Exam: Mucous Membranes Moist - Neck Exam Neck Exam: Full ROM - Respiratory Exam Respiratory Exam: NORMAL BREATHING PATTERN - Extremities Exam Extremities Exam: Full ROM, Normal Inspection. absent: Calf Tenderness, Pedal Edema - Neurological Exam Neurological Exam: Alert, Awake, CN II-XII Intact, Normal Gait, Oriented x3, Reflexes Normal Neuro motor strength exam: Left Upper Extremity: 5, Right Upper Extremity: 5, Left Lower Extremity: 5, Right Lower Extremity: 5 Additional comments: speech clear and fluid strength and appraisal manager ble and bue 5/5 gait steady; ambulated pt in room sensation intact and equal b/l reflexes brisk - Psychiatric Exam Psychiatric exam: Normal Affect, Normal Mood - Skin Skin Exam: Normal Color Assessment and Plan (1) Seizure Assessment & Plan: Imaging: -CT Head (10/20/18): Normal CT of the Head. No intracranial mass, hemorrhage or evidence of acute infarct. Mild diffuse atrophy. Otherwise unremarkable. The preliminary findings for this examination were reported by [facility] Radiology at 6:02 p.m. on 10/20/2018. There is concurrence of this report with the preliminary findings. -MRI Brain (10/22/18): No definite acute intracranial findings bilaterally. Age-related degenerative change are identified as discussed above. 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 -Mrs. Hawthorne has not had any seizure activity since admission to the hospital. She is doing generally well. -EEG done and read as normal per Dr. Richey. -Although her diagnostics for seizures is normal, we recommend continuing Keppra 500 mg PO BID for now and upon discharge. -Follow up with Dr. Richey in the office in 1 month. -May need repeat EEG in 6 months and may consider tapering off Keppra if the EEG is still normal and as long as pt has had no further seizure activity. -PT; rehab. -D/C planning -Please notify neuro team of any acute changes. We will sign off at this time. Reconsult prn. Discussed with Dr. Calvillo. Status: Acute
[2018-10-26] MEDS: Levothyroxine 50 MCG TAB PO SCH (06:15)
[2018-10-26 08:26] VITALS: RESP 18
[2018-10-26 10:30] LABS: HEMOGLOBIN 11.9 g/dL (12.0-16.0); MEAN CELL VOLUME 105.1 fl (81.0-99.0); MEAN CORPUSCULAR HGB CONC 32.4 g/dL (33.0-37.0); RBC 3.51 Mil/uL (3.80-5.20); RED CELL DISTRIBUTION WIDTH 13.3 % (11.5-14.5); WHITE BLOOD COUNT 8.1 K/uL (4.8-10.8)
[2018-10-26 10:43] LABS: CALCIUM 9.6 mg/dL (8.4-10.2)
[2018-10-26 13:56] VITALS: BP 122/74; PULSE 87; TEMP 97.8; O2SAT 99
--- NOTE | 2018-10-26 14:14 | CP.PCM.DIS ---
<Robert,Milton - Last Filed: 10/26/18 14:24> Provider - Provider Date of Admission: 10/22/18 11:59 Attending physician: Jaime Huitron MD Consults: 10/21/18 06:40 Neurology Consult Routine Comment: Consulting Provider: Barrett Richey Consulting Physician: Barrett Richey Reason for Consult: Seizure Time Spent in preparation of Discharge (in minutes): 35 Diagnosis - Discharge Diagnosis (1) Seizure Status: Resolved Hospital Course - Lab Results Lab Results: Micro Results 10/22/18 10:01 Urine,Clean Catch Urine Culture - Final <10,000 CFU/ML. MULTIPLE SPECIES. PROBABLE CONTAMINATION. Most Recent Lab Values WBC 8.1 K/uL (4.8-10.8) 10/26/18 10:22 RBC 3.51 Mil/uL (3.80-5.20) L 10/26/18 10:22 Hgb 11.9 g/dL (12.0-16.0) L 10/26/18 10:22 Hct 36.9 % (34.0-47.0) 10/26/18 10:22 MCV 105.1 fl (81.0-99.0) H 10/26/18 10:22 MCH 34.0 pg (27.0-31.0) H 10/26/18 10:22 MCHC 32.4 g/dL (33.0-37.0) L 10/26/18 10:22 RDW 13.3 % (11.5-14.5) 10/26/18 10:22 Plt Count 199 K/uL (130-400) 10/26/18 10:22 MPV 9.3 fl (7.2-11.7) 10/20/18 22:30 Neut % (Auto) 58.7 % (50.0-75.0) 10/20/18 22:30 Lymph % (Auto) 21.8 % (20.0-40.0) 10/20/18 22:30 [place] % (Auto) 8.7 % (0.0-10.0) 10/20/18 22:30 Eos % (Auto) 9.9 % (0.0-4.0) H 10/20/18 22:30 Baso % (Auto) 0.9 % (0.0-2.0) 10/20/18 22:30 Neut # (Auto) 4.0 K/uL (1.8-7.0) 10/20/18 22:30 Lymph # (Auto) 1.5 K/uL (1.0-4.3) 10/20/18 22:30 [place] # (Auto) 0.6 K/uL (0.0-0.8) 10/20/18 22:30 Eos # (Auto) 0.7 K/uL (0.0-0.7) 10/20/18 22:30 Baso # (Auto) 0.1 K/uL (0.0-0.2) 10/20/18 22:30 PT 12.0 Seconds (9.8-13.1) 10/20/18 22:30 INR 1.1 10/20/18 22:30 APTT 22.3 Seconds (25.6-37.1) L 10/20/18 22:30 Sodium 139 mmol/l (132-148) 10/26/18 10:22 Potassium 3.9 MMOL/L (3.6-5.0) 10/26/18 10:22 Chloride 104 mmol/L (98-107) 10/26/18 10:22 Carbon Dioxide 27 mmol/L (22-30) 10/26/18 10:22 Anion Gap 12 (10-20) 10/26/18 10:22 BUN 26 mg/dl (7-17) H 10/26/18 10:22 Creatinine 1.2 mg/dl (0.7-1.2) 10/26/18 10:22 Est GFR ( Amer) 53 10/26/18 10:22 Est GFR (Non-Af Amer) 43 10/26/18 10:22 POC Glucose (mg/dL) 92 mg/dL (65-110) 10/20/18 22:02 Random Glucose 78 mg/dL (65-105) 10/26/18 10:22 Calcium 9.6 mg/dL (8.4-10.2) 10/26/18 10:22 Total Bilirubin 0.3 mg/dl (0.2-1.3) 10/21/18 07:39 AST 19 U/L (14-36) 10/21/18 07:39 ALT 19 U/L (9-52) 10/21/18 07:39 Alkaline Phosphatase 52 U/L (38-126) 10/21/18 07:39 Troponin I < 0.0120 ng/mL (0.00-0.120) 10/20/18 22:30 Total Protein 6.8 G/DL (6.3-8.2) 10/21/18 07:39 Albumin 3.3 g/dL (3.5-5.0) L D 10/21/18 07:39 Globulin 3.5 gm/dL (2.2-3.9) 10/21/18 07:39 Albumin/Globulin Ratio 0.9 (1.0-2.1) L 10/21/18 07:39 Urine Color Yellow (YELLOW) 10/22/18 10:01 Urine Clarity Clear (Clear) 10/22/18 10:01 Urine pH 5.0 (5.0-8.0) 10/22/18 10:01 Ur Specific Baxter 1.018 (1.003-1.030) 10/22/18 10:01 Urine Protein Negative mg/dL (NEGATIVE) 10/22/18 10:01 Urine Glucose (UA) Neg mg/dL (Normal) 10/22/18 10:01 Urine Ketones Negative mg/dL (NEGATIVE) 10/22/18 10:01 Urine Blood Negative (NEGATIVE) 10/22/18 10:01 Urine Nitrate Negative (NEGATIVE) 10/22/18 10:01 Urine Bilirubin Negative (NEGATIVE) 10/22/18 10:01 Urine Urobilinogen 0.2-1.0 mg/dL (0.2-1.0) 10/22/18 10:01 Ur Leukocyte Esterase Neg Maggie/uL (Negative) 10/22/18 10:01 Urine RBC (Auto) 2 /hpf (0-3) 10/22/18 10:01 Urine Microscopic WBC 1 /hpf (0-5) 10/22/18 10:01 Ur Squamous Epith Cells < 1 /hpf (0-5) 10/22/18 10:01 Urine Opiates Screen Negative (NEGATIVE) 10/21/18 10:56 Urine Methadone Screen Negative (NEGATIVE) 10/21/18 10:56 Ur Barbiturates Screen Negative (NEGATIVE) 10/21/18 10:56 Ur Phencyclidine Scrn Negative (NEGATIVE) 10/21/18 10:56 Ur Amphetamines Screen Negative (NEGATIVE) 10/21/18 10:56 U Benzodiazepines Scrn Negative (NEGATIVE) 10/21/18 10:56 U Oth Cocaine Metabols Negative (NEGATIVE) 10/21/18 10:56 U Cannabinoids Screen Negative (NEGATIVE) 10/21/18 10:56 Alcohol, Quantitative < 10 mg/dl (0-10) 10/20/18 22:30 - Hospital Course Hospital Course: 78 y/o female with a PMHx of HTN brought to [facility] ED after witnessed first time seizure. Head CT was negative for any acute intracranial abnormalities. Pt had another witness seizure in the hospital on 10/21 and was started on Keppra BID. Neurology was consulted (Dr. Richey) along with MRI and EEG. 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 EEg was normal. Cleared for discharge by neurology with continuation of Keprra BID at home and f/u with Dr. Richey in office 1 month from now. As per neurology, pt may need repeat EEG in 6 months and may need to be tapered if EEG is normal. Discharged to TCU to improve gait, strength and balance. Discharge Exam - Head Exam Head Exam: ATRAUMATIC, NORMAL INSPECTION, NORMOCEPHALIC - Eye Exam Eye Exam: Periorbital tenderness - ENT Exam ENT Exam: Mucous Membranes Moist - Respiratory Exam Respiratory Exam: Clear to PA & Lateral. absent: Rhonchi, Wheezes - Cardiovascular Exam Cardiovascular Exam: REGULAR RHYTHM, +S1, +S2. absent: Systolic Murmur - GI/Abdominal Exam GI & Abdominal Exam: Normal Bowel Sounds, Soft. absent: Tenderness - Extremities Exam Extremities exam: normal capillary refill, normal inspection, pedal pulses present - Neurological Exam Neurological exam: Alert - Psychiatric Exam Psychiatric exam: Normal Affect - Skin Skin Exam: Normal Color Discharge Plan - Follow Up Plan Condition: STABLE Disposition: REHAB FACILITY/REHAB UNIT Instructions: Seizures, Adult (DC) Additional Instructions: discharge pt to tcu Referrals: [facility] [Outside] Jaime Huitron MD [Medical Doctor] - Barrett Richey MD [Medical Doctor] - <Jaime Huitron - Last Filed: 10/26/18 19:20> Provider - Provider Date of Admission: 10/22/18 11:59 Attending physician: Jaime Huitron MD Consults: 10/21/18 06:40 Neurology Consult Routine Comment: Consulting Provider: Barrett Richey Consulting Physician: Barrett Richey Reason for Consult: Seizure Hospital Course - Lab Results Lab Results: Micro Results 10/22/18 10:01 Urine,Clean Catch Urine Culture - Final <10,000 CFU/ML. MULTIPLE SPECIES. PROBABLE CONTAMINATION. Most Recent Lab Values WBC 8.1 K/uL (4.8-10.8) 10/26/18 10:22 RBC 3.51 Mil/uL (3.80-5.20) L 10/26/18 10:22 Hgb 11.9 g/dL (12.0-16.0) L 10/26/18 10:22 Hct 36.9 % (34.0-47.0) 10/26/18 10:22 MCV 105.1 fl (81.0-99.0) H 10/26/18 10:22 MCH 34.0 pg (27.0-31.0) H 10/26/18 10:22 MCHC 32.4 g/dL (33.0-37.0) L 10/26/18 10:22 RDW 13.3 % (11.5-14.5) 10/26/18 10:22 Plt Count 199 K/uL (130-400) 10/26/18 10:22 MPV 9.3 fl (7.2-11.7) 10/20/18 22:30 Neut % (Auto) 58.7 % (50.0-75.0) 10/20/18 22:30 Lymph % (Auto) 21.8 % (20.0-40.0) 10/20/18 22:30 [place] % (Auto) 8.7 % (0.0-10.0) 10/20/18 22:30 Eos % (Auto) 9.9 % (0.0-4.0) H 10/20/18 22:30 Baso % (Auto) 0.9 % (0.0-2.0) 10/20/18 22:30 Neut # (Auto) 4.0 K/uL (1.8-7.0) 10/20/18 22:30 Lymph # (Auto) 1.5 K/uL (1.0-4.3) 10/20/18 22:30 [place] # (Auto) 0.6 K/uL (0.0-0.8) 10/20/18 22:30 Eos # (Auto) 0.7 K/uL (0.0-0.7) 10/20/18 22:30 Baso # (Auto) 0.1 K/uL (0.0-0.2) 10/20/18 22:30 PT 12.0 Seconds (9.8-13.1) 10/20/18 22:30 INR 1.1 10/20/18 22:30 APTT 22.3 Seconds (25.6-37.1) L 10/20/18 22:30 Sodium 139 mmol/l (132-148) 10/26/18 10:22 Potassium 3.9 MMOL/L (3.6-5.0) 10/26/18 10:22 Chloride 104 mmol/L (98-107) 10/26/18 10:22 Carbon Dioxide 27 mmol/L (22-30) 10/26/18 10:22 Anion Gap 12 (10-20) 10/26/18 10:22 BUN 26 mg/dl (7-17) H 10/26/18 10:22 Creatinine 1.2 mg/dl (0.7-1.2) 10/26/18 10:22 Est GFR ( Amer) 53 10/26/18 10:22 Est GFR (Non-Af Amer) 43 10/26/18 10:22 POC Glucose (mg/dL) 92 mg/dL (65-110) 10/20/18 22:02 Random Glucose 78 mg/dL (65-105) 10/26/18 10:22 Calcium 9.6 mg/dL (8.4-10.2) 10/26/18 10:22 Total Bilirubin 0.3 mg/dl (0.2-1.3) 10/21/18 07:39 AST 19 U/L (14-36) 10/21/18 07:39 ALT 19 U/L (9-52) 10/21/18 07:39 Alkaline Phosphatase 52 U/L (38-126) 10/21/18 07:39 Troponin I < 0.0120 ng/mL (0.00-0.120) 10/20/18 22:30 Total Protein 6.8 G/DL (6.3-8.2) 10/21/18 07:39 Albumin 3.3 g/dL (3.5-5.0) L D 10/21/18 07:39 Globulin 3.5 gm/dL (2.2-3.9) 10/21/18 07:39 Albumin/Globulin Ratio 0.9 (1.0-2.1) L 10/21/18 07:39 Urine Color Yellow (YELLOW) 10/22/18 10:01 Urine Clarity Clear (Clear) 10/22/18 10:01 Urine pH 5.0 (5.0-8.0) 10/22/18 10:01 Ur Specific Baxter 1.018 (1.003-1.030) 10/22/18 10:01 Urine Protein Negative mg/dL (NEGATIVE) 10/22/18 10:01 Urine Glucose (UA) Neg mg/dL (Normal) 10/22/18 10:01 Urine Ketones Negative mg/dL (NEGATIVE) 10/22/18 10:01 Urine Blood Negative (NEGATIVE) 10/22/18 10:01 Urine Nitrate Negative (NEGATIVE) 10/22/18 10:01 Urine Bilirubin Negative (NEGATIVE) 10/22/18 10:01 Urine Urobilinogen 0.2-1.0 mg/dL (0.2-1.0) 10/22/18 10:01 Ur Leukocyte Esterase Neg Maggie/uL (Negative) 10/22/18 10:01 Urine RBC (Auto) 2 /hpf (0-3) 10/22/18 10:01 Urine Microscopic WBC 1 /hpf (0-5) 10/22/18 10:01 Ur Squamous Epith Cells < 1 /hpf (0-5) 10/22/18 10:01 Urine Opiates Screen Negative (NEGATIVE) 10/21/18 10:56 Urine Methadone Screen Negative (NEGATIVE) 10/21/18 10:56 Ur Barbiturates Screen Negative (NEGATIVE) 10/21/18 10:56 Ur Phencyclidine Scrn Negative (NEGATIVE) 10/21/18 10:56 Ur Amphetamines Screen Negative (NEGATIVE) 10/21/18 10:56 U Benzodiazepines Scrn Negative (NEGATIVE) 10/21/18 10:56 U Oth Cocaine Metabols Negative (NEGATIVE) 10/21/18 10:56 U Cannabinoids Screen Negative (NEGATIVE) 10/21/18 10:56 Alcohol, Quantitative < 10 mg/dl (0-10) 10/20/18 22:30 Attending/Attestation - Attestation I have personally seen and examined this patient.: Yes I have fully participated in the care of the patient.: Yes I have reviewed all pertinent clinical information, including history, physical exam and plan: Yes
--- NOTE | 2018-10-31 21:54 | CP.PCM.PN ---
Subjective - Date & Time of Evaluation Date of Evaluation: 10/25/18 Time of Evaluation: 11:00 - Subjective Subjective: patient seen and examined at bedside. no acute events overnight interim events noted no complaints offered at this time neuro following Objective Vital Signs Stable - Constitutional Appears: Non-toxic - Head Exam Head Exam: NORMAL INSPECTION - Eye Exam Eye Exam: Normal appearance - Neck Exam Neck Exam: Normal Inspection - Respiratory Exam Respiratory Exam: NORMAL BREATHING PATTERN - Cardiovascular Exam Cardiovascular Exam: +S1, +S2 - GI/Abdominal Exam GI & Abdominal Exam: Soft - Neurological Exam Neurological Exam: Alert, Awake - Psychiatric Exam Psychiatric exam: Normal Affect, Normal Mood - Skin Skin Exam: Normal Color, Warm Assessment and Plan - Assessment and Plan (Free Text) Assessment: 78 yo female pt with PMH of HTN admitted due to new onset seizures Plan: Head CT negative for acute intracranial abnormalities Neurology consulted, MRI reviewed EEG pending monitor labs monitor vitals rest of plan as ordered
--- NOTE | 2018-10-31 22:04 | PQF ---
PROVIDER RESPONSE TEXT: [email or web address] REVIEWER QUERY TEXT: Kidney Disease, Chronic CKD Stage Chronic Kidney Disease (CKD) is documented in the Medical Record. Please specify the disease stage ( includes probable or suspected) PLEASE CLARIFY THE STAGE OF CHRONIC KIDNEY DISEASE IF KNOWN ? Such as: -- Chronic kidney disease Stage 1 -- Chronic kidney disease Stage 2 -- Chronic kidney disease Stage 3 -- Chronic kidney disease Stage 4 -- Chronic kidney disease Stage 5 -- Chronic kidney disease Stage 5, requiring dialysis -- End Stage Renal Disease -- Other, please specify Stages are defined by the [employer] as follows: CKD Stage I GFR >= 90 ml / min per 1.73 m2 and persistent albuminuria CKD Stage 2 GFR between 60 and 89 with persistent albuminuria CKD Stage 3 GFR between 30 and 59 CKD Stage 4 GFR between 15 and 29 CKD Stage 5 GFR between <15 or End Stage Renal Disease The patient's Clinical Indicators include: XXX Query created by: Tiffanie Zuluaga on 10/27/2018 2:36 PM Electronically signed by: Jaime Huitron 10/31/2018 10:00 PM
== END 2018-10-26 15:20 | DRG 101 ==
LOC: H.ER 21:33 → H.ERHOLD 23:20 → H.TEL 10-21 01:41 → OBSVTOIN 10-22 11:59
PROVIDERS: ADMIT Family Medicine; ATTEND Family Medicine
DX: R56.9 Unspecified convulsions (principal); I12.9 Hypertensive chronic kidney disease with stage 1 through stage 4 chronic kidney disease, or unspecified chronic kidney disease; Z91.81 History of falling; Z79.82 Long term (current) use of aspirin; Z86.73 Personal history of transient ischemic attack (TIA), and cerebral infarction without residual deficits; Z90.49 Acquired absence of other specified parts of digestive tract; K82.9 Disease of gallbladder, unspecified; E03.9 Hypothyroidism, unspecified; E78.00 Pure hypercholesterolemia, unspecified; N18.3 Chronic kidney disease, stage 3 (moderate)

== ENCOUNTER 2018-10-26 14:19 | Inpatient (IN) | payer MEDICARE ==
[2018-10-26 14:42] VITALS: BMI 22.0
[2018-10-26 16:34] VITALS: RESP 20
[2018-10-27] MEDS: Levothyroxine 50 MCG TAB PO SCH ×2 (05:55→08:00)
[2018-10-27 06:18] LABS: HEMOGLOBIN 11.2 g/dL (12.0-16.0); MEAN CELL VOLUME 102.2 fl (81.0-99.0); MEAN CORPUSCULAR HGB CONC 33.2 g/dL (33.0-37.0); RBC 3.3 Mil/uL (3.80-5.20); RED CELL DISTRIBUTION WIDTH 13.3 % (11.5-14.5); WHITE BLOOD COUNT 6.7 K/uL (4.8-10.8)
--- NOTE | 2018-10-27 12:57 | RAD ---
Date of service: 10/26/2018 PROCEDURE: CHEST RADIOGRAPH, 1 VIEW HISTORY: R/O TB COMPARISON: None available. FINDINGS: LUNGS: The lungs are well inflated and clear. PLEURA: No pneumothorax or pleural effusion. CARDIOVASCULAR: The heart is normal in size. No aortic atherosclerotic calcifications present. OSSEOUS STRUCTURES: Within normal limits for the patient's age. VISUALIZED UPPER ABDOMEN: Normal. OTHER FINDINGS: Surgical clips in the right upper quadrant are related to prior cholecystectomy. IMPRESSION: No active pulmonary disease.
--- NOTE | 2018-10-27 18:36 | CP.PCM.HP ---
<Milton Jones - Last Filed: 10/27/18 18:34> History of Present Illness - History of Present Illness History of Present Illness: 78 y/o female with a PMHx of HTN presents to the ED after one episode of a seizure that was witnessed by family members. Pt had Head CT that was negative for acute changes and was evaluated by Neurology and started on Keppra. She was discharged from [facility] In Patient and now being admitted TCU to improve gait, strength and balance. PMD: Dr. Cook at [facility] Neurologist: Dr. Saleh Present on Admission - Present on Admission Any Indicators Present on Admission: No Past Patient History - Infectious Disease Hx of Infectious Diseases: None - Past Medical History & Family History Past Medical History?: Yes - Past Social History Smoking Status: Never Smoked - CARDIAC Hx Hypercholesterolemia: Yes Hx Hypertension: Yes - PULMONARY Hx Respiratory Disorders: No - NEUROLOGICAL Hx Transient Ischemic Attacks (TIA): Yes - HEENT Hx HEENT Problems: No - RENAL Hx Chronic Kidney Disease: Yes (BLADDER LIFT) - ENDOCRINE/METABOLIC Hx Hypothyroidism: Yes - HEMATOLOGICAL/ONCOLOGICAL Hx Blood Disorders: No - INTEGUMENTARY Hx Dermatological Problems: No - MUSCULOSKELETAL/RHEUMATOLOGICAL Hx Musculoskeletal Disorders: No Hx Falls: Yes (last fall at home approx. 3 weeks ago) - GASTROINTESTINAL Hx Gall Bladder Disease: Yes - GENITOURINARY/GYNECOLOGICAL Hx Genitourinary Disorders: No - PSYCHIATRIC Hx Psychophysiologic Disorder: No Hx Substance Use: No - SURGICAL HISTORY Hx Cholecystectomy: Yes - ANESTHESIA Hx Anesthesia: Yes Hx Anesthesia Reactions: No Hx Malignant Hyperthermia: No Meds Allergies/Adverse Reactions: Allergies Allergy/AdvReac Type Severity Reaction Status Date / Time No Known Allergies Allergy Verified 10/26/18 14:39 Physical Exam - Constitutional Appears: No Acute Distress - Eye Exam Eye Exam: Normal appearance - ENT Exam ENT Exam: Mucous Membranes Moist - Respiratory Exam Respiratory Exam: Clear to Auscultation Bilateral - Cardiovascular Exam Cardiovascular Exam: REGULAR RHYTHM - GI/Abdominal Exam GI & Abdominal Exam: Normal Bowel Sounds - Extremities Exam Extremities exam: Positive for: normal inspection - Neurological Exam Neurological exam: Alert - Psychiatric Exam Psychiatric exam: Normal Affect Results - Vital Signs Recent Vital Signs: Last Vital Signs Temp 97.1 F L 10/27/18 16:49 Pulse 76 10/27/18 16:49 Resp 20 10/27/18 16:49 BP 145/81 10/27/18 16:49 Pulse Ox 97 10/27/18 16:49 - Labs Result Diagrams: 10/27/18 05:30 10/27/18 05:30 Labs: Laboratory Results - last 24 hr 10/27/18 10/27/18 05:30 05:30 WBC 6.7 RBC 3.30 L Hgb 11.2 L Hct 33.7 L MCV 102.2 H D MCH 34.0 H MCHC 33.2 RDW 13.3 Plt Count 168 Sodium 139 Potassium 4.0 Chloride 104 Carbon Dioxide 27 Anion Gap 12 BUN 25 H Creatinine 1.1 Est GFR ( Amer) 58 Est GFR (Non-Af Amer) 48 Random Glucose 89 Calcium 9.0 Assessment & Plan - Assessment and Plan (Free Text) Assessment: 78 y/o female with a PMHx of HTN presents to the ED after one episode of a seizure that was witnessed by family members. Pt had Head CT that was negative for acute changes and was evaluated by Neurology and started on Keppra. She was discharged from [facility] In Patient and now being admitted TCU to improve gait, strength and balance. -C/W Keppra 500mg BID for Seizure prevention -C/W Levothyroxine for Hypothyroidism -Physical therapy as needed Discussed case with Dr. Huitron <Jaime Huitron - Last Filed: 10/28/18 08:28> Results - Vital Signs Recent Vital Signs: Last Vital Signs Temp 98.3 F 10/27/18 19:45 Pulse 75 10/27/18 19:45 Resp 20 10/27/18 19:45 BP 110/68 10/27/18 19:45 Pulse Ox 95 10/27/18 19:45 - Labs Result Diagrams: 10/27/18 05:30 10/27/18 05:30 Attending/Attestation - Attestation I have personally seen and examined this patient.: Yes I have fully participated in the care of the patient.: Yes I have reviewed all pertinent clinical information: Yes
--- NOTE | 2018-10-28 11:34 | CP.PCM.PN ---
Subjective - Date & Time of Evaluation Date of Evaluation: 10/28/18 Time of Evaluation: 11:00 - Subjective Subjective: patient seen and examined at bedside. no acute events overnight. feels well. denies cp/sob/fever/chills. all available diagnostic data reviewed vital signs stable Objective - Constitutional Appears: Non-toxic, No Acute Distress - Head Exam Head Exam: NORMAL INSPECTION - Eye Exam Eye Exam: Normal appearance - Respiratory Exam Respiratory Exam: NORMAL BREATHING PATTERN - Cardiovascular Exam Cardiovascular Exam: +S1, +S2 - GI/Abdominal Exam GI & Abdominal Exam: Soft - Neurological Exam Neurological Exam: Alert, Awake, Oriented x3 - Psychiatric Exam Psychiatric exam: Normal Affect, Normal Mood - Skin Skin Exam: Normal Color, Warm Assessment and Plan Cont meds Cont tx Cont PT
[2018-10-28] MEDS: Levothyroxine 50 MCG TAB PO SCH (11:52)
[2018-10-29] MEDS: Levothyroxine 25 MCG TAB PO SCH (05:58)
[2018-10-30] MEDS: Levothyroxine 25 MCG TAB PO SCH (06:34)
[2018-10-30 06:49] LABS: HEMOGLOBIN 11.8 g/dL (12.0-16.0); MEAN CELL VOLUME 102.1 fl (81.0-99.0); MEAN CORPUSCULAR HEMOGLOBIN 34.1 pg (27.0-31.0); MEAN CORPUSCULAR HGB CONC 33.4 g/dL (33.0-37.0); RBC 3.47 Mil/uL (3.80-5.20); RED CELL DISTRIBUTION WIDTH 13.1 % (11.5-14.5); WHITE BLOOD COUNT 6.6 K/uL (4.8-10.8)
[2018-10-30 07:09] LABS: CALCIUM 9.1 mg/dL (8.4-10.2)
[2018-10-31] MEDS: Levothyroxine 25 MCG TAB PO SCH (06:21)
--- NOTE | 2018-10-31 21:39 | CP.PCM.PN ---
Subjective - Date & Time of Evaluation Date of Evaluation: 10/29/18 Time of Evaluation: 11:00 - Subjective Subjective: patient seen and examined at bedside. no acute events overnight. feels well. denies cp/sob/fever/chills. all available diagnostic data reviewed vital signs stable Objective - Constitutional Appears: Non-toxic, No Acute Distress - Head Exam Head Exam: NORMAL INSPECTION - Eye Exam Eye Exam: Normal appearance - Respiratory Exam Respiratory Exam: NORMAL BREATHING PATTERN - Cardiovascular Exam Cardiovascular Exam: +S1, +S2 - GI/Abdominal Exam GI & Abdominal Exam: Soft - Neurological Exam Neurological Exam: Alert, Awake, Oriented x3 - Psychiatric Exam Psychiatric exam: Normal Affect, Normal Mood - Skin Skin Exam: Normal Color, Warm Assessment and Plan Cont meds Cont tx Cont PT
--- NOTE | 2018-10-31 21:40 | CP.PCM.PN ---
Subjective - Date & Time of Evaluation Date of Evaluation: 10/30/18 Time of Evaluation: 11:00 - Subjective Subjective: patient seen and examined at bedside. no acute events overnight. feels well. denies cp/sob/fever/chills. all available diagnostic data reviewed vital signs stable Objective - Constitutional Appears: Non-toxic, No Acute Distress - Head Exam Head Exam: NORMAL INSPECTION - Eye Exam Eye Exam: Normal appearance - Respiratory Exam Respiratory Exam: NORMAL BREATHING PATTERN - Cardiovascular Exam Cardiovascular Exam: +S1, +S2 - GI/Abdominal Exam GI & Abdominal Exam: Soft - Neurological Exam Neurological Exam: Alert, Awake, Oriented x3 - Psychiatric Exam Psychiatric exam: Normal Affect, Normal Mood - Skin Skin Exam: Normal Color, Warm Assessment and Plan Cont meds Cont tx Cont PT
--- NOTE | 2018-10-31 21:41 | CP.PCM.PN ---
Subjective - Date & Time of Evaluation Date of Evaluation: 10/31/18 Time of Evaluation: 11:00 - Subjective Subjective: patient seen and examined at bedside. no acute events overnight. feels well. denies cp/sob/fever/chills. all available diagnostic data reviewed vital signs stable Objective - Constitutional Appears: Non-toxic, No Acute Distress - Head Exam Head Exam: NORMAL INSPECTION - Eye Exam Eye Exam: Normal appearance - Respiratory Exam Respiratory Exam: NORMAL BREATHING PATTERN - Cardiovascular Exam Cardiovascular Exam: +S1, +S2 - GI/Abdominal Exam GI & Abdominal Exam: Soft - Neurological Exam Neurological Exam: Alert, Awake, Oriented x3 - Psychiatric Exam Psychiatric exam: Normal Affect, Normal Mood - Skin Skin Exam: Normal Color, Warm Assessment and Plan Cont meds Cont tx Cont PT
[2018-11-01] MEDS: Levothyroxine 50 MCG TAB PO SCH (06:22)
[2018-11-02] MEDS: Levothyroxine 50 MCG TAB PO SCH (06:02)
[2018-11-03] MEDS: Levothyroxine 50 MCG TAB PO SCH (05:45)
--- NOTE | 2018-11-03 12:43 | CP.PCM.DIS ---
Provider - Provider Date of Admission: 10/26/18 14:42 Attending physician: Jaime Huitron MD Time Spent in preparation of Discharge (in minutes): 35 Diagnosis - Discharge Diagnosis (1) Mobility impaired Status: Resolved (2) Seizure Status: Resolved Hospital Course - Lab Results Lab Results: Most Recent Lab Values WBC 6.6 K/uL (4.8-10.8) 10/30/18 05:30 RBC 3.47 Mil/uL (3.80-5.20) L 10/30/18 05:30 Hgb 11.8 g/dL (12.0-16.0) L 10/30/18 05:30 Hct 35.4 % (34.0-47.0) 10/30/18 05:30 MCV 102.1 fl (81.0-99.0) H 10/30/18 05:30 MCH 34.1 pg (27.0-31.0) H 10/30/18 05:30 MCHC 33.4 g/dL (33.0-37.0) 10/30/18 05:30 RDW 13.1 % (11.5-14.5) 10/30/18 05:30 Plt Count 196 K/uL (130-400) 10/30/18 05:30 Sodium 139 mmol/l (132-148) 10/30/18 05:30 Potassium 4.0 MMOL/L (3.6-5.0) 10/30/18 05:30 Chloride 100 mmol/L (98-107) 10/30/18 05:30 Carbon Dioxide 28 mmol/L (22-30) 10/30/18 05:30 Anion Gap 15 (10-20) 10/30/18 05:30 BUN 31 mg/dl (7-17) H 10/30/18 05:30 Creatinine 1.3 mg/dl (0.7-1.2) H 10/30/18 05:30 Est GFR ( Amer) 48 10/30/18 05:30 Est GFR (Non-Af Amer) 40 10/30/18 05:30 Random Glucose 89 mg/dL (65-105) 10/30/18 05:30 Calcium 9.1 mg/dL (8.4-10.2) 10/30/18 05:30 - Hospital Course Hospital Course: 78 y/o female with a PMHx of HTN presents to the ED after one episode of a seizure that was witnessed by family members. Pt had Head CT that was negative for acute changes and was evaluated by Neurology and started on Keppra. She was discharged from [facility] In Patient and now was being treated in TCU to improve gait, strength and balance. She has now been cleared for discharged. Pt given Rx for Keppra and advised to f/u neurologist outpatient. Discharge Exam - Head Exam Head Exam: NORMAL INSPECTION - Eye Exam Eye Exam: Normal appearance - ENT Exam ENT Exam: Mucous Membranes Moist - Respiratory Exam Respiratory Exam: Clear to PA & Lateral - Cardiovascular Exam Cardiovascular Exam: REGULAR RHYTHM - Extremities Exam Extremities exam: normal inspection - Neurological Exam Neurological exam: Alert, Oriented x3 - Psychiatric Exam Psychiatric exam: Normal Affect - Skin Skin Exam: Normal Color Discharge Plan - Discharge Medications Prescriptions: levETIRAcetam [Keppra] 500 mg PO BID 30 Days #60 tab - Follow Up Plan Condition: GOOD Disposition: DISCHARGED TO HOME CARE Instructions: Preventing Falls in the Older Adult, Seizures, Adult (DC) Additional Instructions: Follow up with MD Kaiden Wang, [address], [place] [address] #[phone] within a month, follow up with primary doctor within a week Referrals: Barrett Richey MD [Medical Doctor] -
[2018-11-03 15:56] VITALS: BP 113/68; PULSE 67; TEMP 97.4; O2SAT 99
== END 2018-11-03 16:04 | disposition home health service (06) | DRG 101 ==
LOC: H.TCU 14:42
PROVIDERS: ADMIT Family Medicine; ATTEND Family Medicine
PROC: F07Z9FZ Gait Training/Functional Ambulation Treatment using Assistive, Adaptive, Supportive or Protective Equipment (ICD-10-PCS; principal; 2018-10-26)
PROC: F07L6GZ Therapeutic Exercise Treatment of Musculoskeletal System - Lower Back / Lower Extremity using Aerobic Endurance and Conditioning Equipment (ICD-10-PCS; 2018-10-26)
PROC: F08Z1FZ Dressing Techniques Treatment using Assistive, Adaptive, Supportive or Protective Equipment (ICD-10-PCS; 2018-10-26)
PROC: F08Z0FZ Bathing/Showering Techniques Treatment using Assistive, Adaptive, Supportive or Protective Equipment (ICD-10-PCS; 2018-10-26)
DX: R56.9 Unspecified convulsions (principal); I12.9 Hypertensive chronic kidney disease with stage 1 through stage 4 chronic kidney disease, or unspecified chronic kidney disease; N18.9 Chronic kidney disease, unspecified; Z86.73 Personal history of transient ischemic attack (TIA), and cerebral infarction without residual deficits; E78.00 Pure hypercholesterolemia, unspecified; E03.9 Hypothyroidism, unspecified

== ENCOUNTER 2019-04-16 16:08 | Emergency (ER) | payer MEDICARE ==
[2019-04-16 16:15] VITALS: RESP 16; BMI 21.0
[2019-04-16] MEDS ORDERED: Sodium Chloride 0.9% 1,000 ML IV STA (16:50)
[2019-04-16 17:40] LABS: BASO % 0.3 % (0.0-2.0); EOS % 0.1 % (0.0-4.0); HEMOGLOBIN 11.2 g/dL (12.0-16.0); LYMPH # 0.7 K/uL (1.0-4.3); LYMPH % 11.7 % (20.0-40.0); MEAN CELL VOLUME 102.1 fl (81.0-99.0); MEAN CORPUSCULAR HEMOGLOBIN 33.7 pg (27.0-31.0); MEAN PLATELET VOLUME 9.5 fl (7.2-11.7); MONO # 0.8 K/uL (0.0-0.8); MONO % 12.7 % (0.0-10.0); NEUT # 4.6 K/uL (1.8-7.0); NEUT % 75.2 % (50.0-75.0); RBC 3.32 Mil/uL (3.80-5.20); RED CELL DISTRIBUTION WIDTH 13.8 % (11.5-14.5); WHITE BLOOD COUNT 6.1 K/uL (4.8-10.8)
[2019-04-16 17:51] LABS: SQUAMOUS EPITHIAL < 1 /hpf (0-5); URINE AMORPHOUS SEDIMENT RARE /ul (<OCC); URINE BILIRUBIN SMALL (NEGATIVE); URINE BLOOD NEGATIVE (NEGATIVE); URINE CLARITY CLOUDY (Clear); URINE COLOR AMBER (YELLOW); URINE GLUCOSE (UA) NEG (NEGATIVE); URINE LEUKOCYTE ESTERASE NEG Leu/uL (Negative); URINE PROTEIN 100 mg/dL (NEGATIVE)
[2019-04-16 18:05] LABS: ALB/GLOB RATIO 1.1 (1.0-2.1); CALCIUM 8.6 mg/dL (8.4-10.2)
--- NOTE | 2019-04-16 18:22 | ED PDOC ---
HPI: Abdomen Time Seen by Provider: 04/16/19 16:24 Chief Complaint (Nursing): GI Problem Chief Complaint (Provider): Dehydration Concern History Per: Patient, Family (daughter) History/Exam Limitations: no limitations Onset/Duration Of Symptoms: Days Additional Complaint(s): 78 year old female brought in by daughter to ED for concern of dehydration. Patient was recently diagnosed with colitis. She reports increasing frequency of diarrhea over last 2 days. Patients daughter states that patient is eating and drinking less. She is feeling tired and weak now but denies any vomiting or blood in diarrhea. Patient is scheduled for an endoscopy by shuttle inspector at [facility] next week. PMD: Hallie Cook Past Medical History Reviewed: Historical Data, Nursing Documentation, Vital Signs Vital Signs: Last Vital Signs Temp 97.7 F 04/16/19 16:14 Pulse 78 04/16/19 16:14 Resp 16 04/16/19 16:14 BP 116/65 04/16/19 16:14 Pulse Ox 97 04/16/19 16:14 Primary Care Provider: Hallie Cook - Medical History PMH: Gall Bladder Disease, HTN, Hypercholesterolemia, Hypothyroidism, Kidney Stones, Chronic Kidney Disease (BLADDER LIFT), Seizures, TIA - Surgical History Surgical History: Cholecystectomy - Family History Family History: States: Unknown Family Hx - Social History Current smoker - smoking cessation education provided: No Alcohol: None Drugs: Denies - Immunization History Hx Tetanus Toxoid Vaccination: Yes Hx Influenza Vaccination: No Hx Pneumococcal Vaccination: No - Home Medications Home Medications: Ambulatory Orders Medication Instructions Recorded Levothyroxine [Synthroid] 50 mcg PO DAILY 08/30/18 Aspirin [Aspirin Chewable] 81 mg PO DAILY 10/20/18 Metoprolol Tartrate [Lopressor] 50 mg PO BID 10/21/18 Montelukast [Singulair] 10 mg PO DAILY 10/21/18 levETIRAcetam [Keppra] 500 mg PO BID 30 Days #60 tab 11/03/18 - Allergies Allergies/Adverse Reactions: Allergies Allergy/AdvReac Type Severity Reaction Status Date / Time No Known Allergies Allergy Verified 04/16/19 16:22 Review of Systems ROS Statement: Except As Marked, All Systems Reviewed And Found Negative Constitutional: Positive for: Weakness (and tired), Other (dehydration concern) Gastrointestinal: Positive for: Diarrhea (increasing frequency over x2 days), O ther (recently diagnosed with colitis). Negative for: Vomiting, Hematochezia Physical Exam - Reviewed Nursing Documentation Reviewed: Yes Vital Signs Reviewed: Yes - Physical Exam Appears: Positive for: No Acute Distress Head Exam: Positive for: ATRAUMATIC, NORMAL INSPECTION, NORMOCEPHALIC Skin: Positive for: Normal Color, Warm, Dry Eye Exam: Positive for: EOMI, Normal appearance, PERRL ENT: Positive for: Normal ENT Inspection Neck: Positive for: Normal, Painless ROM, Supple Cardiovascular/Chest: Positive for: Regular Rate, Rhythm. Negative for: Murmur Respiratory: Positive for: Normal Breath Sounds. Negative for: Respiratory Distress Gastrointestinal/Abdominal: Positive for: Normal Exam, Soft. Negative for: Tenderness Back: Positive for: Normal Inspection. Negative for: L CVA Tenderness, R CVA Tenderness, Vertebral Tenderness Extremity: Positive for: Normal ROM. Negative for: Tenderness, Deformity Neurological/Psych: Positive for: Awake, Alert, Normal Tone, Oriented (x3) - Laboratory Results Result Diagrams: 04/16/19 17:20 04/16/19 17:20 Lab Results: Total Bilirubin 1.0 mg/dl (0.2-1.3) 04/16/19 17:20 AST 19 U/L (14-36) 04/16/19 17:20 ALT 9 U/L (9-52) D 04/16/19 17:20 Alkaline Phosphatase 64 U/L (38-126) 04/16/19 17:20 Total Protein 7.7 G/DL (6.3-8.2) 04/16/19 17:20 Albumin 4.0 g/dL (3.5-5.0) 04/16/19 17:20 Globulin 3.7 gm/dL (2.2-3.9) 04/16/19 17:20 Albumin/Globulin Ratio 1.1 (1.0-2.1) 04/16/19 17:20 Urine Color [place] (YELLOW) 04/16/19 17:20 Urine Clarity Cloudy (Clear) 04/16/19 17:20 Urine pH 5.0 (5.0-8.0) 04/16/19 17:20 Ur Specific [place] 1.026 (1.003-1.030) 04/16/19 17:20 Urine Protein 100 mg/dL (NEGATIVE) 04/16/19 17:20 Urine Glucose (UA) Neg mg/dL (NEGATIVE) 04/16/19 17:20 Urine Ketones Trace mg/dL (NEGATIVE) 04/16/19 17:20 Urine Blood Negative (NEGATIVE) 04/16/19 17:20 Urine Nitrate Negative (NEGATIVE) 04/16/19 17:20 Urine Bilirubin Small (NEGATIVE) 04/16/19 17:20 Urine Urobilinogen 2.0 mg/dL (0.2-1.0) H 04/16/19 17:20 Ur Leukocyte Esterase Neg Maggie/uL (Negative) 04/16/19 17:20 Urine RBC (Auto) 3 /hpf (0-3) 04/16/19 17:20 Urine Microscopic WBC 5 /hpf (0-5) 04/16/19 17:20 Ur Squamous Epith Cells < 1 /hpf (0-5) 04/16/19 17:20 Amorphous Sediment Rare /ul (<OCC) H 04/16/19 17:20 Hyaline Casts 3-5 /hpf (0-2) H 04/16/19 17:20 - ECG O2 Sat by Pulse Oximetry: 97 (RA) Pulse Ox Interpretation: Normal Medical Decision Making Medical Decision Making: Time: 1814 Initial Impression: worsening colitis/diarrhea Initial Plan: --Labs --FOBT to rule out GI bleed --IV Fluid --Reassessment 1844 Labs unremarkable. Pt feeling better without recurrent episode of diarrhea. Pt instructed to follow up with shuttle inspector next week as previously scheduled for endoscopy. Return parameters discussed. ------- Scribe Attestation: Documented by Hieu Acevedo acting as a scribe for Jessica Butler MD. Provider Scribe Attestation: All medical record entries made by the Scribe were at my direction and personally dictated by me. I have reviewed the chart and agree that the record accurately reflects my personal performance of the history, physical exam, medical decision making, and the department course for this patient. I have also personally directed, reviewed, and agree with the discharge instructions and disposition. Disposition - Clinical Impression Clinical Impression: Diarrhea - Disposition Disposition: Routine/Home Disposition Time: 18:35 Condition: IMPROVED Forms: [facility] (Gu[place]ian)
[2019-04-16 18:55] VITALS: BP 137/78; PULSE 79; TEMP 98.4; O2SAT 98
== END 2019-04-16 18:55 | disposition home or self-care (01) ==
LOC: H.ER 16:08
DX: R19.7 Diarrhea, unspecified (principal); E78.00 Pure hypercholesterolemia, unspecified; E03.9 Hypothyroidism, unspecified; I12.9 Hypertensive chronic kidney disease with stage 1 through stage 4 chronic kidney disease, or unspecified chronic kidney disease; N18.9 Chronic kidney disease, unspecified
CPT/HCPCS: 80053; 81003; 85025; 87045; 99283; G0328; J7030